=== PATIENT | male | born 1955 | race Caucasian/White ===

== ENCOUNTER 2016-10-09 07:55 | Day surgery (SDC) ==
[2016-10-09] MEDS ORDERED: DIPRIVAN 20 ML VIAL IVP ONE (11:00)
[2016-10-09 12:39] VITALS: BP 129/79; TEMP 98.3
[2016-10-09 13:21] LABS: BASOPHILS % (AUTO) 0.6 % (0.0-3.0); EOSINOPHILS # (AUTO) 0.3 K/ul (0.0-0.7); EOSINOPHILS % (AUTO) 4.7 % (0.0-7.0); HEMATOCRIT 36.8 % (42.0-52.0); HEMOGLOBIN 12.3 g/dl (14.0-18.0); IMMATURE GRANULOCYTE % (AUTO) 0.1 % (0.0-5.0); LYMPHOCYTES # (AUTO) 0.8 K/uL (0.60-3.4); LYMPHOCYTES % (AUTO) 11.5 (10.0-50.0); MEAN CORPUSCULAR HEMOGLOBIN 33.6 pg (27.0-31.0); MEAN CORPUSCULAR HGB CONC 33.4 (31.8-35.4); MEAN CORPUSCULAR VOLUME 100.5 fl (80.0-94.0); MONOCYTES # (AUTO) 0.5 K/uL (0.4-2.0); MONOCYTES % (AUTO) 7.3 (0-10); NEUTROPHILS # (AUTO) 5.2 K/ul (2.0-6.9); NEUTROPHILS % (AUTO) 75.8; PLATELET COUNT 183 10^3/uL (140-440); RED BLOOD COUNT 3.66 10^6/ul (4.70-6.10); WHITE BLOOD COUNT 6.86 K/ul (4.2-10.2)
[2016-10-09 13:24] LABS: ALBUMIN 3.7 g/dL (3.4-5.0); ALBUMIN/GLOBULIN RATIO 1.19; ANION GAP 11.9; BILIRUBIN,TOTAL 0.72 mg/dL (0.00-1.20); BUN/CREATININE RATIO 18.08; CALCIUM 9.3 mg/dL (8.2-10.2); CREATININE 0.94 mg/dL (0.60-1.10); POTASSIUM 3.9 mmol/L (3.5-5.1); TOTAL PROTEIN 6.8 g/dL (5.8-8.1)
--- NOTE | 2016-10-10 10:06 | OP ---
INDICATIONS FOR PROCEDURE: 60-year-old gentleman with longstanding Crohn's presents for surveillance examination. He states he is now taking his prescribed 150 mg of Imuran daily. He was not taking it properly when I saw him in the office in August. He has known active Crohn's involving the terminal ileum proximal to his anastomosis. Last year this inflammation was mostly in the distal 5 cm but extended up to 10 cm. He is asymptomatic. MEDICATIONS: SEE ANESTHESIA NOTES. PROCEDURE: COLONOSCOPY, BIOPSY. REPORT: The risks, benefits, alternatives and limitations were discussed in detail with the patient. Informed consent was obtained. After adequate sedation was achieved, a digital rectal exam revealed good tone, no masses. The colonoscope was introduced into the rectum and advanced under direct visual guidance to the ileocolonic anastomosis. I was able to intubate the ileum and examine distally 12 cm. There were still linear ulcerations and active inflammation in distal 5 cm but proximal to that there was no active inflammation and this was a mild improvement from one year ago. I obtained biopsies from the ileum for histological review. I then slowly withdrew the scope in a circumferential manner examining the mucosa quite carefully. I looked on the proximal and distal side of folds and flexures as best as possible. I obtained biopsies from the proximal transverse colon not too far distant from the anastomosis. In the sigmoid there were multiple scattered diverticula. There was an area of hemosiderin staining of the mucosa. This appeared to either be overlying a lipoma or an inverted diverticulum. It did not appear to be an adenomatous polyp. I therefore elected to biopsy this for histological review. Withdrawing the scope further revealed no other abnormalities other than small hemorrhoids on retroflex view of the anal canal. I obtained random biopsies from the rectum for histological review as well. The prep was adequate. The withdrawal time was 12 minutes and 0 seconds. The patient tolerated the procedure well with stable vital signs and pulse oximetry throughout. IMPRESSION: 1. Mild improvement in his Crohn's activity with now involvement of the distal 5 cm of the ileum. 2. Diverticulosis. 3. Hemosideran staining of either inverted diverticulum or probable lipoma in the sigmoid at 34 cm. 4. Small internal hemorrhoids. RECOMMENDATIONS: 1. Regarding the lesion in the sigmoid at 34 cm will await pathologist's results. If there is evidence of adenomatous tissue, which did not appear to be grossly then I would suggest repeat colonoscopy possibly this summer for polypectomy. 2. Await biopsy results randomly for surveillance. 3. If path is all negative then repeat colonoscopy examination again in one year. 4. Will go ahead and check his [facility] labs for TPMT metabolite levels to see if he is at a good level now he is on Imuran 150 mg daily for the last month. 5. Will also check CBC, celiac protein and CMP. 6. Office visit in 2 months. CC: DR. OSMANY CHAVEZ
== END 2016-10-09 13:25 | disposition home or self-care (01) ==
LOC: SURG 07:55
PROVIDERS: ATTEND Internal Medicine Gastroenterology
DX: K50.00 Crohn's disease of small intestine without complications (principal); D13.39 Benign neoplasm of other parts of small intestine; D12.3 Benign neoplasm of transverse colon; D12.5 Benign neoplasm of sigmoid colon; D12.7 Benign neoplasm of rectosigmoid junction; K57.30 Diverticulosis of large intestine without perforation or abscess without bleeding; K63.89 Other specified diseases of intestine; K64.8 Other hemorrhoids; E11.9 Type 2 diabetes mellitus without complications
CPT/HCPCS: 36415; 80053; 82962; 85025; 86140

== ENCOUNTER 2016-11-01 09:05 | Outpatient (CLI) ==
--- NOTE | 2016-11-01 10:20 | CT ---
EXAM: CT chest without contrast HISTORY: Hypertension with history of smoking and recent diagnosis of asthma COMPARISON: Chest x-ray 08/04/2014 and 02/11/2014 TECHNIQUE: Serial axial images of the chest were obtained from the lung apices to the upper abdomen without contrast. These were viewed in multiple planes. FINDINGS: The thyroid is normal. The visualized vessels are unremarkable without aneurysm or steno sis. The heart is normal in size without pericardial effusion. There are nonpathologically enlarge d lymph nodes with a precarinal lymph node measuring 0.8 centimeters in diameter. There is no hilar or axillary lymph nodes present. There is no pneumothorax or pleural effusion. There is scattered small airways thickening throughou t both lungs. There is no acute consolidation, nodule or mass. The airways are otherwise patent wi th no plugging or obstruction. There is no abnormal ground-glass. The soft tissues in the upper abdomen are unremarkable with surgical changes to the bowel in the mid abdomen. The osseous structures demonstrate scattered degenerative disease. IMPRESSION: 1. Small airway thickening throughout the lungs may represent reactive changes, chronic inflammatio n versus acute small airways inflammation/infection. 2. No acute consolidation, nodule or abnormality.
--- NOTE | 2016-11-01 10:48 | US ---
EXAM: ULTRASOUND RETROPERITONEAL LIMITED ABDOMINAL AORTA. HISTORY: Abdominal aortic aneurysm screening. Hypertension COMPARISON: None available TECHNIQUE: Wheeler scale and color doppler images. FINDINGS: Abdominal aortic measurements in centimeters as follows: Proximal, not seen due to bowel gas Mid, 2 x 1.5 Distal, 2.3 x 1.8 Color flow seen through the aorta. Right iliac artery measures 1.2 x 0.9 cm in diameter. Left iliac artery measures 1.1 x 0.9 cm in di ameter. IMPRESSION: No sonographic evidence for abdominal aortic aneurysm.
== END 2016-11-01 09:06 | disposition home or self-care (01) ==
LOC: RAD 09:05
PROVIDERS: ATTEND Internal Medicine
DX: I10 Essential (primary) hypertension (principal); F17.210 Nicotine dependence, cigarettes, uncomplicated
CPT/HCPCS: 76706; 76775

== ENCOUNTER 2017-03-16 21:47 | Emergency (ER) ==
[2017-03-16 21:57] VITALS: BP 133/76; TEMP 99.6; BMI 23.7
[2017-03-16] MEDS ORDERED: SOLU-MEDROL 125 MG IVP STA (22:03)
[2017-03-16] MEDS ORDERED: XOPENEX 1.25 MG NEB STA (22:03)
[2017-03-16] MEDS ORDERED: DUONEB NEB STA (22:03)
--- NOTE | 2017-03-16 23:02 | ED.PDOC ---
General ED Provider: Dr. TRES BAL-ER Chief Complaint: Shortness of Air Stated Complaint: im wheezing Time Seen by Physician: 21:50 Mode of Arrival: Walk-In Information Source: Patient Exam Limitations: No limitations Primary Care Provider: BILLY MEYERS Nursing and Triage Documentation Reviewed and Agree: Yes Respiratory Complaint Exam - Asthma Complaint/Exam Onset/Duration: 24hrs Symptoms Are: Still present Timing: Constant Initial Severity: Mild Current Severity: Mild Character: Reports: Wheezing, Non-productive cough Aggravating: Reports: None Alleviating: Reports: None Associated Signs and Symptoms: Reports: SOA, Labored breathing. Denies: Fever, Chest pain, Edema, Calf pain, URI, Sinus infection, Rapid breathing Related History: Reports: Similar episode Related Surgical History: Reports: None Status Asthmaticus Risk Factors: Reports: None Current Asthma Medication Usage: Yes Recent Antibiotics: No Respiratory Distress: None Accessory Muscle Use: No Diminished Breath Sounds: No Prolonged Expiratory Phase: Yes Unable to Speak Full Sentences: No Fatigue Present: No Differential Diagnoses: Acute Asthma Review of Systems - Review Of Systems Constitutional: Reports: No symptoms Eyes: Reports: No symptoms Ears, Nose, Mouth, Throat: Reports: No symptoms Respiratory: Reports: Cough, Wheezing Cardiac: Reports: No symptoms GI: Reports: No symptoms : Reports: No symptoms Musculoskeletal: Reports: No symptoms Skin: Reports: No symptoms Neurological: Reports: No symptoms Endocrine: Reports: No symptoms Hematologic/Lymphatic: Reports: No symptoms All Other Systems: Reviewed and Negative Past Medical History - Past Medical History Previously Healthy: Yes Endocrine: Reports: None Cardiovascular: Reports: None Respiratory: Reports: Asthma Hematological: Reports: None Gastrointestinal: Reports: None Genitourinary: Reports: None Neuro/Psych: Reports: None Musculoskeletal: Reports: None Cancer: Reports: None - Surgical History General Surgical History: Reports: Unknown - Family History Family History: Reports: Unknown - Social History Smoking Status: Current every day smoker Hx Substance Use: No Alcohol Screening: Occasionally Lives: With family - Immunizations Tetanus Shot up to Date: No (unsure) Physical Exam - Physical Exam Appearance: Well-appearing Eyes: MOISES, EOMI, Conjunctiva clear ENT: Ears normal, Nose normal, Oropharynx normal Neck: Supple Respiratory: Airway patent, Breath sounds equal, Wheezes Cardiovascular: Bradycardia GI/: Soft, Nontender, No masses, Bowel sounds normal, No Organomegaly Musculoskeletal: Normal strength, ROM intact, No edema, No calf tenderness Skin: Warm Neurological: Sensation intact Psychiatric: Affect appropriate, Mood appropriate Interpretation - Radiology Interpretation Radiology Interpretation By: ED Physician Radiology Results: Negative Exam Interpreted: CXR Re-Evaluation - Re-Evaluation Time of Re-Evaluation: 23:02 Status: Improved (oxygen 91 --"i feel better than i have in years") Vital Signs Stable: Yes Pain Level: 1 Appearance: NAD Lungs: Clear Skin: Warm and Dry Neuro: Alert and Oriented X3 CV: RRR Critical Care Note - Critical Care Note Total Time (mins): 0 Course - Course Orders, Labs, Meds: Orders Category Date Time Status NEBULIZER TREATMENT Stat CARDIO 03/16/17 22:03 Completed IV [ED IV/MEDIPORT/POWERPORT] .ONCE EMERGENCY 03/16/17 22:03 Active 0.9 % Sodium Chloride [Saline Flush] MEDS 03/16/17 22:03 Ordered 1 syr IVF PRN PRN Ipratropium/Albuterol Neb [Duoneb] MEDS 03/16/17 22:03 Discontinued 1 vial NEB ONCE STA Levalbuterol HCl [Xopenex 1.25 mg] MEDS 03/16/17 22:03 Discontinued 1 vial NEB ONCE STA Methylprednisolone Sod Succ/Pf [Solu-Medrol 125 mg] MEDS 03/16/17 22:03 Discontinued 125 mg IVP ONCE STA CXR [CHEST, 2 VIEWS PA & LAT] Stat RADS 03/16/17 22:04 Taken Medications Generic Name Dose Route Start Last Admin Trade Name Freq PRN Reason Stop Dose Admin Sodium Chloride 1 syr 03/16/17 22:03 Saline Flush IVF PRN PRN To flush IV Discontinued Medications Generic Name Dose Route Start Last Admin Trade Name Freq PRN Reason Stop Dose Admin Albuterol/Ipratropium 1 vial 03/16/17 22:03 03/16/17 22:40 Duoneb NEB 03/16/17 22:04 1 vial ONCE STA Administration Levalbuterol HCl 1 vial 03/16/17 22:03 03/16/17 22:49 Xopenex 1.25 Mg NEB 03/16/17 22:04 1 vial ONCE STA Administration Methylprednisolone Sodium Succinate 125 mg 03/16/17 22:03 03/16/17 22:44 Solu-Medrol 125 Mg IVP 03/16/17 22:04 125 mg ONCE STA Administration Vital Signs: Temp Pulse Resp BP Pulse Ox 03/16/17 21:49 99.6 F 75 24 133/76 89 L Departure - Departure Time of Disposition: 23:03 Disposition: HOME SELF-CARE Discharge Problem: Asthma Qualifiers: Asthma severity: mild intermittent Asthma complication type: with acute exacerbation Qualifier Code: (J45.21) Mild intermittent asthma with (acute) exacerbation Instructions: Asthma (ED) Condition: Good Pt referred to PMD for follow-up: Yes Additional Instructions: flovent inhaler 44mcg 2 puffs bid (rinse mouth use )--prednisone 30mg x 2 days then 20mg x 3 days then 10mg x 3 days--use inhaler qid --f/u with dr meyers Allergies/Adverse Reactions: Allergies codeine Adverse Reaction (Verified 03/16/17 21:58) Sulfa (Sulfonamide Antibiotics) Adverse Reaction (Verified 03/16/17 21:58) Home Medications: Ambulatory Orders Albuterol Sulfate [Albuterol Sulfate Hfa] 7 gm IH PRN 07/13/14 Amlodipine Besylate [Norvasc] 5 mg PO DAILY 07/13/14 Aspirin [Aspirin EC] 81 mg PO DAILYWM 07/13/14 Atorvastatin Calcium [Lipitor] 20 mg PO DAILY 07/13/14 Clopidogrel Bisulfate [Clopidogrel] 75 mg PO DAILY 07/13/14 Fenofibrate,Micronized [Fenofibrate] 200 mg PO DAILY 07/13/14 Ferrous Sulfate 325 mg PO DAILY 07/13/14 Glimepiride [Amaryl] 2 mg PO DAILY 07/13/14 Mesalamine [Lialda] 2.4 gm PO BID 07/13/14 Metformin HCl [Glucophage] 1,000 mg PO BID 07/13/14 Metoprolol Succinate [Toprol Xl] 50 mg PO DAILY 07/13/14 Omeprazole [Prilosec] 20 mg PO QDAC 07/13/14 Paroxetine HCl [Paxil] 30 mg PO DAILY 07/13/14 Potassium Chloride [K-Dur] 20 meq PO DAILY 07/13/14 Propylthiouracil 50 mg PO DAILY 07/13/14 Sitagliptin Phosphate [Januvia] 100 mg PO DAILY 07/13/14 Valsartan/Hydrochlorothiazide [Valsartan-Hctz 160-25 mg Tab] 0.5 tab PO DAILY Azathioprine [Imuran] 50 mg PO DAILY 07/26/15 Folic Acid 1 mg PO DAILY 07/26/15
--- NOTE | 2017-03-17 02:49 | DI ---
EXAM: Chest, two views, 03/16/2017 HISTORY: Cough COMPARISON: 08/04/2014 FINDINGS / IMPRESSION: Cardiomediastinal contours appear within normal limits. There is no pulmona ry consolidation, effusion or pneumothorax No acute cardiopulmonary process.
== END 2017-03-16 23:26 | disposition home or self-care (01) ==
LOC: ED 21:47
DX: J45.21 Mild intermittent asthma with (acute) exacerbation (principal); Z79.899 Other long term (current) drug therapy; F17.210 Nicotine dependence, cigarettes, uncomplicated
CPT/HCPCS: 94640; 96374; 96375; 99284

== ENCOUNTER 2017-05-31 16:40 | Emergency (ER) ==
[2017-05-31 16:46] VITALS: BP 132/72; TEMP 99.3; BMI 22.6
[2017-05-31] MEDS ORDERED: DUONEB NEB ONE (16:55)
--- NOTE | 2017-05-31 17:11 | ED.PDOC ---
General ED Provider: Dr. TESS MAO Chief Complaint: Shortness of Air Stated Complaint: Asthma flared up beginning this AM. Only new trigger is cold symptoms began yesterday (clear rhinorrhea and dry cough). No other sx. Time Seen by Physician: 17:05 Mode of Arrival: Walk-In Information Source: Patient Exam Limitations: No limitations Primary Care Provider: BILLY CERON Nursing and Triage Documentation Reviewed and Agree: Yes Respiratory Complaint Exam - Asthma Complaint/Exam Onset/Duration: this AM Symptoms Are: Still present Timing: Constant Initial Severity: Moderate Current Severity: Severe Character: Reports: Wheezing, Non-productive cough Aggravating: Reports: None Alleviating: Reports: None Related History: Reports: Similar episode (asthma flares in the past) Related Surgical History: Reports: None Status Asthmaticus Risk Factors: Reports: None Current Asthma Medication Usage: Yes Recent Antibiotics: No Respiratory Distress: Moderate Accessory Muscle Use: Yes Retractions: Not Present Diminished Breath Sounds: No Prolonged Expiratory Phase: No Unable to Speak Full Sentences: No Fatigue Present: No Differential Diagnoses: Acute Asthma (bronchitis ) Patient Advised to Stop Smoking: No (quit smoking in February 2017) Review of Systems - Review Of Systems Constitutional: Reports: No symptoms Eyes: Reports: No symptoms Respiratory: Reports: Cough (cold sx and [employer] cough since yesterday morning), Short of air, Wheezing Cardiac: Reports: No symptoms GI: Reports: No symptoms : Reports: No symptoms Musculoskeletal: Reports: No symptoms Skin: Reports: No symptoms Neurological: Reports: No symptoms All Other Systems: Reviewed and Negative Past Medical History - Past Medical History Previously Healthy: Yes Endocrine: Reports: None Cardiovascular: Reports: None Respiratory: Reports: Asthma Hematological: Reports: None Gastrointestinal: Reports: None Genitourinary: Reports: None Neuro/Psych: Reports: None Musculoskeletal: Reports: None Cancer: Reports: None - Surgical History General Surgical History: Reports: Unknown - Family History Family History: Reports: Unknown - Social History Smoking Status: Current every day smoker, Former smoker (quit smoking in February 2017) Hx Substance Use: No Alcohol Screening: Occasionally Lives: Alone - Immunizations Tetanus Shot up to Date: No Influenza Vaccine within 12 Months: No Pneumococcal Vaccine up to Date: No Physical Exam - Physical Exam Appearance: Well-appearing, No pain distress, Well-nourished Ill-appearing: None Pain Distress: None ENT: Rhinorrhea (TMS mata and dull) Respiratory: Airway patent, Wheezes (inspiratory and exp wheezes in AF) Cardiovascular: RRR, Pulses normal, No rub, No murmur GI/: Soft Musculoskeletal: Normal strength, ROM intact, No edema, No calf tenderness Skin: Warm, Dry, Normal color Neurological: Sensation intact, Motor intact, Reflexes intact, Cranial nerves intact, Alert, Oriented Psychiatric: Affect appropriate, Mood appropriate Re-Evaluation - Re-Evaluation Time of Re-Evaluation: 17:20 (s/p albuterol neb tx) Status: Improved (Patient states feels much better) Vital Signs Stable: Yes Pain Level: 0 Appearance: NAD Lungs: Other (faint exp wheezes only) Skin: Warm and Dry Neuro: Alert and Oriented X3 CV: RRR Critical Care Note - Critical Care Note Total Time (mins): 0 Course - Course Orders, Labs, Meds: Orders Category Date Time Status Ipratropium/Albuterol Neb [Duoneb] MEDS 05/31/17 16:55 Discontinued 1 vial NEB .STK-MED ONE Vital Signs: Temp Pulse Resp BP Pulse Ox 05/31/17 16:41 99.3 F 108 H 22 132/72 92 L Departure - Departure Time of Disposition: 17:27 Disposition: HOME SELF-CARE Discharge Problem: Asthmatic bronchitis Instructions: Asthma (ED) Condition: Good Pt referred to PMD for follow-up: No (see PCP if no better in 3 days) Allergies/Adverse Reactions: Allergies codeine Adverse Reaction (Verified 05/31/17 16:48) Sulfa (Sulfonamide Antibiotics) Adverse Reaction (Verified 05/31/17 16:48) Home Medications: Ambulatory Orders Albuterol Sulfate [Albuterol Sulfate Hfa] 7 gm IH PRN 07/13/14 Amlodipine Besylate [Norvasc] 5 mg PO DAILY 07/13/14 Aspirin [Aspirin EC] 81 mg PO DAILYWM 07/13/14 Atorvastatin Calcium [Lipitor] 20 mg PO DAILY 07/13/14 Clopidogrel Bisulfate [Clopidogrel] 75 mg PO DAILY 07/13/14 Fenofibrate,Micronized [Fenofibrate] 200 mg PO DAILY 07/13/14 Ferrous Sulfate 325 mg PO DAILY 07/13/14 Glimepiride [Amaryl] 2 mg PO DAILY 07/13/14 Mesalamine [Lialda] 2.4 gm PO BID 07/13/14 Metformin HCl [Glucophage] 1,000 mg PO BID 07/13/14 Metoprolol Succinate [Toprol Xl] 50 mg PO DAILY 07/13/14 Omeprazole [Prilosec] 20 mg PO QDAC 07/13/14 Paroxetine HCl [Paxil] 30 mg PO DAILY 07/13/14 Potassium Chloride [K-Dur] 20 meq PO DAILY 07/13/14 Propylthiouracil 50 mg PO DAILY 07/13/14 Sitagliptin Phosphate [Januvia] 100 mg PO DAILY 07/13/14 Valsartan/Hydrochlorothiazide [Valsartan-Hctz 160-25 mg Tab] 0.5 tab PO DAILY Azathioprine [Imuran] 50 mg PO DAILY 07/26/15 Folic Acid 1 mg PO DAILY 07/26/15 Albuterol Sulfate [Ventolin Hfa] 2 puff IH BID 05/31/17 Azithromycin [Zithromax] 500 mg PO DAILY #5 tablet 05/31/17
[2017-05-31] MEDS ORDERED: SOLU-MEDROL 125 MG IVP STA (17:23)
[2017-05-31] MEDS ORDERED: ALBUTEROL 0.083% NEB NEB STA (17:24)
[2017-05-31] MEDS ORDERED: SOLU-MEDROL 125 MG IM STA (17:36)
[2017-05-31] MEDS ORDERED: DUONEB NEB STA (18:09)
== END 2017-05-31 18:10 | disposition home or self-care (01) ==
LOC: ED 16:40
DX: J45.909 Unspecified asthma, uncomplicated (principal)
CPT/HCPCS: 94640; 96372; 99282

== ENCOUNTER 2017-10-01 07:28 | Day surgery (SDC) ==
[2017-10-01] MEDS ORDERED: DIPRIVAN 20 ML VIAL IVP ONE (09:30)
[2017-10-01] MEDS ORDERED: LIDOCAINE HCL 2% LUER-JET ONE (09:30)
[2017-10-01 11:07] VITALS: BP 148/74; TEMP 97.3
--- NOTE | 2017-10-02 11:45 | OP ---
INDICATIONS FOR PROCEDURE: 61-year-old gentleman with a history of Crohn's presents for colonoscopy exam. Last year he had mild Crohn's in the distal 5 cm of his terminal ileum and his Imuran was increased from 150 mg daily to 200 mg daily. He presents now for disease assessment. He is asymptomatic. MEDICATIONS: SEE ANESTHESIA NOTES. PROCEDURE: COLONOSCOPY, BIOPSY. REPORT: The risks, benefits, alternatives and limitations were discussed in detail with the patient. Informed consent was obtained. After adequate sedation was achieved, a digital rectal exam revealed good tone, no masses. The colonoscope was introduced into the rectum and advanced under direct visual guidance to the ileocolic anastomosis. This is what appeared to an end to side anastomosis. I was able to intubate the terminal ileum and examine a distance of 20 cm of this. Only the distal 5 cm was there inflammation manifested by small ulcerations and erythema. This appeared relatively unchanged from one year previous. Biopsies were obtained from this area for histologic review. I then slowly withdrew the scope in a circumferential manner examining the mucosa quite carefully. I looked on the proximal and distal sides of the folds and flexures as best as possible throughout the colon. There was diverticulosis scattered throughout the sigmoid. At roughly 34 cm there was a small submucosal lesion consistent with lipoma unchanged from one year prior. On retroflex view of the anal canal there were small internal hemorrhoids. The prep was good. The withdrawal time was 8 minutes and 15 seconds. The patient tolerated the procedure well with stable vital signs and pulse oximetry throughout. IMPRESSION: 1. MILDLY ACTIVE CROHN'S IN THE DISTAL 5 CM OF THE TERMINAL ILEUM UNCHANGED FROM ONE YEAR AGO. 2. DIVERTICULOSIS. 3. SMALL LIPOMA IN THE SIGMOID. 4. SMALL INTERNAL HEMORRHOIDS. RECOMMENDATIONS: 1. I will check with him to make certain that he is taking 200 mg Imuran daily as prescribed. 2. Await pathology results. 3. Will have him followup in the office to discuss additional treatment options. In the past he has been reluctant to do so since he has been asymptomatic. 4. Repeat colonoscopy examination again in 3 years, tentatively and as needed. CC: DR. OSMANY CHAVEZ
== END 2017-10-01 10:33 | disposition home or self-care (01) ==
LOC: SURG 07:28
PROVIDERS: ATTEND Internal Medicine Gastroenterology
DX: K50.00 Crohn's disease of small intestine without complications (principal); D13.39 Benign neoplasm of other parts of small intestine; K57.30 Diverticulosis of large intestine without perforation or abscess without bleeding; D17.79 Benign lipomatous neoplasm of other sites; K64.8 Other hemorrhoids; Z98.0 Intestinal bypass and anastomosis status

== ENCOUNTER 2018-10-07 06:32 | Day surgery (SDC) ==
[2018-10-07 07:10] VITALS: TEMP 98
[2018-10-07] MEDS ORDERED: DIPRIVAN 20 ML VIAL IVP ONE (08:07)
--- NOTE | 2018-10-08 10:31 | OP ---
INDICATIONS FOR PROCEDURE: 62 year old gentleman presents for colonoscopy evaluation. He has a history of Crohn's disease. He is asymptomatic he tell me. Last year we increased his Imuran to 250mg from 200mg but in June we had to decrease back 200mg when he WBC dropped. MEDICATIONS: SEE ANESTHESIA NOTES. PROCEDURE: COLONOSCOPY. BIOPSY. SNARE POLYPECTOMY. REPORT: The risks, benefits, alternatives and limitations were discussed in detail with the patient. Informed consent was obtained. After adequate sedation was achieved, a digital rectal exam revealed good tone, no masses. The colonoscope was introduced into the rectum and advanced under direct visual guidance to the ileocolonic anastomosis. I was able to advance the scope into the terminal ileum for 18 cm. I then slowly withdrew. In the distal 5cm of the terminal ileum there was small scattered ulceration consistent with mild active Crohn's. Biopsies were obtained for histological review. This mild was disease activity. The anastomosis appear unremarkable. I then slowly withdrew the scope in circumferential manner through colon. I looked on the proximal and distal sides of folds and flexures as best as possible. The prep was adequate. In the Transverse colon there was a diminutive 4mm polyp that I destroyed using a snare. There was a lipoma in the descending area. On retroflex view of the anal canal there was non-engorged internal hemorrhoids. The prep was adequate as above. The withdraw time was 9 minutes and 20 seconds. The patient tolerated the procedure well with stable vital signs and pulse oximetry throughout. IMPRESSION: 1. Mild smoldering Crohn's in the distal 5cm of the terminal ileum 2. Small polyp destroyed in the colon 3. Small lipoma 4. Small non-engorged hemorrhoid, internally RECOMMENDATIONS: 1. He is asymptomatic, we are going to continue to observe his Crohn's 2. When I see him in the office for his routine office visit we will discuss once again the option of switching to a biological from Imuran. versus continuing with therapy as is. 3. Plan repeat colonoscopy again one year. CC: Dr. Norman CHAVEZ
[2018-10-08 15:11] VITALS: BP 122/65
== END 2018-10-08 09:30 | disposition home or self-care (01) ==
LOC: SURG 06:32
PROVIDERS: ATTEND Internal Medicine Gastroenterology
DX: K50.00 Crohn's disease of small intestine without complications (principal); D17.9 Benign lipomatous neoplasm, unspecified; K63.5 Polyp of colon; K64.8 Other hemorrhoids

== ENCOUNTER 2018-11-07 06:49 | Outpatient (CLI) ==
--- NOTE | 2018-11-10 10:33 | ECHO2D ---
Date of Exam: 11/07/18 Ordering Physician: DR. BILLY CERON Room #: OP Reason for Echo: SOB, CARDIOMYOPATHY M-Mode Normal Adult Results LV Dimensions Normal Adult Results AoV Opening excursions >1.6 >1.6 LVEDD-base- 3.5-5.8 5.9 Ao root dimensions 2.0-3.7 3.6 LVESD-base- 3.1-4.6 L. Atrium dimensions 1.9-3.8 4.2 Post. Wall thickness 0.8-1.1 1.2 IV septum (thickness) 0.7-1.2 1.1 Post. Wall excursion 0.72-1.3 NORMAL Septal motion ABNORMAL Systolic motion R. Ventricular cavity 1.5-2.0 4.0 LVEF 60% 40 TO 45 % Paradoxical septal wall motion NORMAL 2-D : ENLARGED LEFT ATRIAL AND LEFT VENTRICLE CAVITIES (BORDERLINE); NORMAL VALVES, ENLARGED RIGHT VENTRICLE CAVITY, ABNORMAL SEPTAL MOTION--NO EFFUSION, NO THROMBUS M-MODE: MV: NORMAL AV: NORMAL TV: NORMAL PV: CHAMBER SIZE: ENLARGED LEFT ATRIAL, LEFT VENTRICLE AND RIGHT VENTRICLE CAVITIES WALL MOTION: ABNORMAL SEPTAL WALL MOTION/ HYPOKINETIC LEFT VENTRICLE PERICARDIUM: NORMAL INTERPRETATION: 1. BORDERLINE LEFT VENTRICULAR HYPERTROPHY 2. ENLARGED RIGHT VENTRICLE, LEFT ATRIAL AND LEFT VENTRICLE CAVITIES 3. HYPOKINETIC LEFT VENTRICLE, ABNORMAL SEPTAL WALL FROM BUNDLE BRANCH BLOCK 4. LEFT VENTRICULAR EJECTION FRACTION-- 40 TO 45 % MTDD
== END 2018-11-07 06:50 | disposition home or self-care (01) ==
LOC: CAR 06:49
PROVIDERS: ATTEND Internal Medicine
DX: R06.02 Shortness of breath (principal); I42.9 Cardiomyopathy, unspecified

== ENCOUNTER 2024-11-07 12:14 | Inpatient (IN) ==
--- NOTE | 2024-11-07 12:39 | ED.PDOC ---
General ED Provider: Dr. ALEIDA LAWRENCE MD Chief Complaint: Respiratory Complaint Stated Complaint: Patient is a 69-year-old male with past medical history of hypertension, type 2 diabetes, CKD, myelodysplasia, hypothyroidism, COPD, GERD, dilated cardiomyopathy, megaloblastic anemia who presents with complaint of shortness of breath, cough and fevers. The patient states that he has been having symptoms since Saturday. The cough is productive of yellow/green phlegm. He had fevers Saturday and Saturday but since the fevers have resolved. Patient also has some runny nose. Denies any headache, body aches, dizziness, sore throat, chest pain, nausea, vomiting, abdominal pain or urinary symptoms. Patient denies any exposure to sick contacts. Patient does not use any home oxygen. Patient continues to smoke cigarettes. Patient states he was treated for possible pneumonia with Keflex and steroids in the middle of September, he was feeling better after the medications still Saturday when his symptoms restarted. Time Seen by Provider: 11/07/24 12:34 Mode of Arrival: Walk-In Information Source: Patient Exam Limitations: No limitations Primary Care Provider: BILLY AUSTIN MD Nursing and Triage Documentation Reviewed and Agree: Yes What is Opioid Naive?: *Opioid Naive implies the patient is not already taking opioids or not chronically receiving opioids on a daily basis. *PRN dosing is not "usually" associated with tolerance. *Patients are at higher risk of over-sedation and aspiration. What is Opioid Tolerant?: *Opioid Tolerance implies less than the expected response to an opioid. *Acquired tolerance is defined by the patient taking 60mg of oral morphine daily (or equianalgesic dose of another opioid) for 1 week or more. *Often associated with chronic pain. *May take more than usual dose to achieve desired pain control. Review of Systems Review Of Systems Constitutional: Reports Fever Eyes: Reports No symptoms Ears, Nose, Mouth, Throat: Reports No symptoms; Denies Nose discharge or Throat pain Respiratory: Reports Cough and Shortness of Breath Cardiac: Reports No symptoms GI: Reports No symptoms : Reports No symptoms Musculoskeletal: Reports No symptoms Skin: Reports No symptoms Neurological: Reports No symptoms Endocrine: Reports No symptoms Hematologic/Lymphatic: Reports No symptoms All Other Systems: Reviewed and Negative PFSH Family History FATHER Lung cancer Mother Heart disease Social History Smoking and tobacco status: Current every day smoker Tobacco: How many years used: 53 Alcohol intake: current Alcohol intake frequency: a few times a week Alcohol type: beer and hard liquor Substance use type: does not use [place]/mormon: [employer] Special ely needs: No Agree to transfusion: Yes Adopted: No Caregiver/support person: No Foster care: No Household members: none Housing: house Marital status: S SINGLE Lives independently: Yes Daycare: no daycare Number of children: 0 service: No MCC: No Current occupational status: retired History of recent travel: No Do you think of yourself as: straight/heterosexual Current gender identity: male Seatbelt use: always Drives intoxicated or rides with intoxicated light truck driver: No Water heater temperature set < 120 degrees: Yes Working smoke detector in home: Yes Fire extinguisher in home: Yes Carbon monoxide detector in home: Yes Surgical History History of right hip replacement Z96.641 - Presence of right artificial hip joint (ICD-10) History of ear surgery bilateral canal stenosis - hernandez Z98.890 - Other specified postprocedural states (ICD-10) 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 Dia 10/23/20 Exploratory Lap Z90.49 - Acquired absence of other specified parts of digestive tract (ICD- 10) Physical Exam Physical Exam Appearance: Reports Ill-appearing, No pain distress and Well-nourished Ill-appearing: Moderate Eyes: Reports MOISES, EOMI and Conjunctiva clear ENT: Reports Ears normal, Nose normal and Oropharynx normal Neck: Supple Respiratory: Reports Breath sounds diminished, Wheezes and Other (Tachypnea, using accessory muscles of respiration) Cardiovascular: Reports Pulses normal, No murmur and Tachycardia GI/: Reports Soft and Nontender Musculoskeletal: Reports Normal strength, No edema and No calf tenderness Skin: Reports Warm and Normal color Neurological: Reports Sensation intact, Motor intact, Alert and Oriented Psychiatric: Reports Affect appropriate Interpretation EKG Interpretation EKG Interpretation By: ED Physician Time of EKG #1: 12:58 Rate: Normal Rhythm: Sinus Ectopy: None ST Segment: Normal Interpretation: Normal sinus rhythm, LBBB, no STEMI. Radiology Interpretation Radiology Interpretation By: Radiologist Radiology Results: No acute changes Exam Interpreted: Portable CXR (PA AND LATERAL VIEWS OF THE CHEST HISTORY: Cough. COMPARISON: Chest x-ray 03/16/2017 FINDINGS: The cardiomediastinal silhouette is normal. Lungs are hyperinflated. There is no pneumothorax or pleural effusion. There is no consolidation, nodule or mass. The osseous structures demonstrat) Re-Evaluation Re-Evaluation Time of Re-Evaluation: 14:45 Status: Improved Vital Signs Stable: Yes Appearance: NAD Lungs: Other (Wheezing still present but improved to the initial presentation.) Skin: Warm and Dry Neuro: Alert and Oriented X3 CV: RRR Physician Notification Case Discussed Admit To: Inpatient Consult With: Allen Arcos nurse practitioner for hospitalist Critical Care Note Critical Care Note Total Critical Care Time (mins): 40 Course Course 11/07/24 13:06 11/07/24 13:06 Orders, Labs, Meds: Lab Review 11/07/24 11/07/24 12:50 13:06 WBC 3.84 L RBC 4.08 L Hgb 14.0 Hct 40.4 L MCV 99.0 H MCH 34.3 H MCHC 34.7 RDW Coeff of Emir 13.7 Plt Count 114 L Immature Gran % (Auto) 0.3 Neut % (Auto) 80.6 H Lymph % (Auto) 11.2 Angelina % (Auto) 7.6 Eos % (Auto) 0.0 Baso % (Auto) 0.3 Neut # (Auto) 3.1 Lymph # (Auto) 0.4 L Angelina # (Auto) 0.3 L Eos # (Auto) 0.0 Baso # (Auto) 0.0 Immature Gran # (Auto) 0.0 Sodium 134.0 L Potassium 3.12 L Chloride 95.9 L Carbon Dioxide 28.3 Anion Gap 12.92 BUN 16.6 Creatinine 0.82 Estimated GFR (MDRD) 93.00 BUN/Creatinine Ratio 20.24 Glucose 167.3 H Lactic Acid 1.26 Calcium 8.50 Magnesium 2.09 Total Bilirubin 1.17 AST 39.9 ALT 20.0 Alkaline Phosphatase 85.0 Troponin I 0.015 NT-Pro-B Natriuret Pep 508 H Total Protein 7.26 Albumin 3.87 Globulin 3.39 Albumin/Globulin Ratio 1.14 Influ A Molecular Assay Positive by naat H Influ B Molecular Assay Negative by naat RSV Antigen Negative by naat SARS CoV-2 RNA Rapid BEA Negative Orders Category Date Time Status ADMIT OBSERVATION [PLACE PATIENT OBSERVATION] .TO ADMISSION 11/07/24 14:39 Active MEDSURG (MONITORED BED) EKG-(ED ONLY) Stat CARDIO 11/07/24 12:39 Completed NEBULIZER TREATMENT Routine CARDIO 11/07/24 15:00 Active OXYGEN Routine CARDIO 11/07/24 14:59 Active ACTIVITY .Early Mobilization for VTE Prevention CARE 11/07/24 14:59 Active BLOOD GLUCOSE MONITORING (MED/SURG) 0630,1100,1700,2100 CARE 11/07/24 14:59 Active GIVE HS SNACK 2100 CARE 11/07/24 14:59 Active INTAKE & OUTPUT Q8HR CARE 11/07/24 14:59 Active TELEMETRY MONITORING TELE CARE 11/07/24 14:39 Active VITAL SIGNS Q4HR CARE 11/07/24 14:59 Active ADA 1800 ESTELA. DIET DIETARY 11/07/24 Dinner Ordered HS SNACK DIETARY 11/07/24 Dinner Ordered CBC W/ AUTO DIFF DAILY@0600 LAB 11/08/24 06:00 Ordered CBC W/ AUTO DIFF DAILY@0600 LAB 11/09/24 06:00 Ordered CBC W/ AUTO DIFF Stat LAB 11/07/24 13:06 Completed CMP [COMPREHENSIVE METABOLIC PANEL] Stat LAB 11/07/24 13:06 Completed COMPREHENSIVE METABOLIC PANEL DAILY@0600 LAB 11/08/24 06:00 Ordered COMPREHENSIVE METABOLIC PANEL DAILY@0600 LAB 11/09/24 06:00 Ordered COVID [SARS COV-2 RNA RAPID BEA] Stat LAB 11/07/24 12:50 Completed FLU A & B MOLECULAR [FLU A/B MOLECULAR] Stat LAB 11/07/24 12:50 Completed LACTIC ACID Stat LAB 11/07/24 13:06 Completed MAGNESIUM Stat LAB 11/07/24 13:06 Completed PROBNP ED [NT-PROBNP(ED)] Stat LAB 11/07/24 13:06 Completed RSV Stat LAB 11/07/24 12:50 Completed TROPONIN I Stat LAB 11/07/24 13:06 Completed Acetaminophen [Tylenol] Meds 11/07/24 14:59 Active 650 mg PO Q4H PRN Ceftriaxone/D5w 1 gm Premix [Rocephin 1 gm/50 ml D5w] Meds 11/07/24 15:30 Active 1 gm in 50 ml IV DAILY Doxycycline Hyclate Inj [Doxy-100] 100 mg Meds 11/07/24 21:00 Active 0.9 % Sodium Chloride [Sodium Chloride 100Ml] 100 ml IV Q12HR Ipratropium/Albuterol Neb [Duoneb] Meds 11/07/24 18:00 Active 3 ml NEB RTQ4H Ipratropium/Albuterol Neb [Duoneb] Meds 11/07/24 12:39 Discontinued 6 ml NEB ONCE STA Methylprednisolone Sod Succ/Pf [Solu-Medrol 40 mg] Meds 11/07/24 21:00 Active 40 mg IVP Q12HR Oseltamivir Phosphate Capsule [Tamiflu Capsule] Meds 11/07/24 14:21 Discontinued 75 mg PO ONCE ONE CHEST, 1V AP ONLY Stat RADS 11/07/24 12:39 Completed Medications Generic Name Dose Route Start Last Admin Trade Name Freq PRN Reason Stop Dose Admin Acetaminophen 650 mg 11/07/24 14:59 Acetaminophen 325 Mg Tablet PO Q4H PRN Mild Pain Albuterol/Ipratropium 3 ml 11/07/24 18:00 11/08/24 01:08 Ipratropium/Albuterol Vial.Neb NEB 3 ml RTQ4H PROSPER Administration Amlodipine Besylate 5 mg 11/08/24 09:00 Amlodipine Besylate 5 Mg Tablet PO DAILY [facility] Aspirin 81 mg 11/07/24 19:30 11/07/24 21:14 Aspirin 81 Mg Tablet.Dr PO 81 mg DAILY PROSPER Administration Atorvastatin Calcium 20 mg 11/08/24 17:00 Atorvastatin Calcium 20 Mg Tablet PO DAILY@1700 [facility] Azathioprine 200 mg 11/08/24 09:00 Azathioprine 50 Mg Tablet PO DAILY [facility] Clopidogrel Bisulfate 75 mg 11/07/24 19:30 11/07/24 21:12 Clopidogrel Bisulfate 75 Mg Tablet PO 75 mg DAILY PROSPER Administration Fenofibrate 160 mg 11/08/24 09:00 Fenofibrate 160 Mg Tablet PO DAILY [facility] Ferrous Sulfate 324 mg 11/08/24 09:00 Ferrous Sulfate 324 Mg Tablet. PO 2XD PROSPER Folic Acid 1 mg 11/08/24 09:00 Folic Acid 1 Mg Tablet PO DAILY PROSPER Furosemide 20 mg 11/08/24 09:00 Furosemide 20 Mg Tablet PO QAM PROSPER CEFTRIAXONE/D5W 1 GM PREMIX 1 gm in 50 mls @ 100 mls/hr 11/07/24 15:30 11/07/24 15:23 Rocephin 1 Gm/50 Ml D5w IV 11/10/24 15:29 100 mls/hr DAILY PROSPER Administration Doxycycline Hyclate 100 mg/ 100 mls @ 50 mls/hr 11/07/24 21:00 11/07/24 21:12 Sodium Chloride IV 11/10/24 20:59 50 mls/hr Q12HR PROSPER Administration Insulin Human Regular 0 unit 11/07/24 19:15 Insulin Regular, Human 100 Unit/Ml (10ml) Vial SUBCUT PRN PRN Hyperglycemia Protocol Losartan Potassium 50 mg 11/08/24 09:00 Losartan Potassium 25 Mg Tablet PO DAILY [facility] Methylprednisolone Sodium Succinate 40 mg 11/07/24 21:00 11/07/24 21:14 Methylprednisolone Sod Succ/Pf 40 Mg/Ml Vial IVP 40 mg Q12HR PROSPER Administration Metoprolol Succinate 50 mg 11/08/24 09:00 Metoprolol Succinate 50 Mg Tab.Er.24h PO DAILY [facility] Omeprazole 20 mg 11/08/24 09:00 Omeprazole 20 Mg Capsule. PO DAILY [facility] Paroxetine HCl 30 mg 11/08/24 09:00 Paroxetine Hcl 20 Mg Tablet PO DAILY [facility] Potassium Chloride 20 meq 11/08/24 09:00 Potassium Chloride 20 Meq Tab PO DAILY [facility] Propylthiouracil 50 mg 11/08/24 09:00 Propylthiouracil 50 Mg Tablet PO DAILY [facility] Sitagliptin Phosphate 50 mg 11/08/24 09:00 Sitagliptin Phosphate 50 Mg Tablet PO DAILY [facility] Discontinued Medications Generic Name Dose Route Start Last Admin Trade Name Freq PRN Reason Stop Dose Admin Albuterol/Ipratropium 6 ml 11/07/24 12:39 11/07/24 12:48 Ipratropium/Albuterol Vial.Neb NEB 11/07/24 12:40 6 ml ONCE STA Administration Oseltamivir Phosphate 75 mg 11/07/24 14:21 02/15/25 15:23 Oseltamivir Phosphate 75 Mg Capsule PO 11/07/24 14:22 75 mg ONCE ONE Administration Potassium Chloride 40 meq 11/07/24 19:38 11/07/24 21:12 Potassium Chloride 20 Meq Tab PO 11/07/24 19:39 40 meq ONCE ONE Administration Vital Signs: Temp Pulse Resp BP Pulse Ox 11/07/24 12:26 97.4 F L 102 H 20 120/69 90 L Differential diagnosis include but not limited to flu, COVID, RSV infection, pneumonia, pleural effusion, pneumothorax, PE, COPD exacerbation, asthma exacerbation, CHF exacerbation, anxiety. ER course: Patient is a 69-year-old male who presented with fever cough and shortness of breath since Saturday. Patient had pneumonia recently which was treated with Keflex and prednisone. Patient was getting better but since Saturday his symptoms restarted. On arrival patient was saturating in high 80s, he was given oxygen and started on breathing treatments which improved his symptoms. Swabs came back positive for flu. Patient requiring oxygen and continuing to be tachypneic, we will admit him. Discussed with Allen Arcos NP for Dr. Alton Austin and the patient was admitted to the hospitalist services. Discharge Plan Discharge Patient Disposition: ADMITTED INPATIENT Discharge Problem: COPD exacerbation, Influenza A, Dyspnea Did you review [place] ESTIMATOR BINDING for ALL controlled substances?: Not Applicable ED Provider: ALEIDA LAWRENCE Condition: Stable
[2024-11-07] MEDS: DUONEB NEB STA (12:48)
[2024-11-07 13:10] LABS: MOLECULAR FLU A POSITIVE BY NAAT (NEGATIVE); MOLECULAR FLU B NEGATIVE BY NAAT (NEGATIVE); RSV MOLECULAR NEGATIVE BY NAAT (NEGATIVE); SARS COV-2 RNA RAPID NAAT NEGATIVE (NEGATIVE)
[2024-11-07 13:22] LABS: BASOPHILS % (AUTO) 0.3 % (0.0-3.0); HEMATOCRIT 40.4 % (42.0-52.0); IMMATURE GRANULOCYTE % (AUTO) 0.3 % (0.0-5.0); LYMPHOCYTES # (AUTO) 0.4 K/uL (0.60-3.4); LYMPHOCYTES % (AUTO) 11.2 (10.0-50.0); MEAN CORPUSCULAR HEMOGLOBIN 34.3 pg (27.0-31.0); MEAN CORPUSCULAR HGB CONC 34.7 (31.8-35.4); MONOCYTES # (AUTO) 0.3 K/uL (0.4-2.0); MONOCYTES % (AUTO) 7.6 (0-10); NEUTROPHILS # (AUTO) 3.1 K/ul (2.0-6.9); NEUTROPHILS % (AUTO) 80.6 % (42.2-75.2); PLATELET COUNT 114 10^3/uL (140-440); RDW COEFFICIENT OF VARIATION 13.7 % (11.6-14.8); RED BLOOD COUNT 4.08 10^6/ul (4.70-6.10); WHITE BLOOD COUNT 3.84 K/ul (4.2-10.2)
[2024-11-07 13:27] LABS: ALBUMIN 3.87 g/dL (3.5-5.0); ASPARTATE AMINO TRANSFERASE 39.9 U/L (17-59); BILIRUBIN,TOTAL 1.17 mg/dL (0.2-1.3); BLOOD UREA NITROGEN 16.6 mg/dL (9-20); CALCIUM 8.5 mg/dL (8.4-10.2); CARBON DIOXIDE 28.3 mmol/L (22-30.0); CHLORIDE 95.9 mmol/L (98-107); CREATININE 0.82 mg/dL (0.60-1.10); GLUCOSE 167.3 mg/dL (74-106); MAGNESIUM 2.09 mg/dL (1.6-2.3); POTASSIUM 3.12 mmol/L (3.5-5.1); TOTAL PROTEIN 7.26 g/dL (6.3-8.2)
--- NOTE | 2024-11-07 14:51 | DI ---
EXAM: CHEST RADIOGRAPH (1 VIEW) TECHNIQUE: Frontal Chest Radiograph. HISTORY: Shortness of breath COMPARISON: None. FINDINGS: Lines, Tubes, Devices: None Lungs and Pleura: No focal consolidation. No pleural effusion. No pneumothorax. Findings suggestin g chronic obstructive pulmonary disease. Cardiac silhouette: Normal. Bones: Old left rib fracture. IMPRESSION: No acute radiographic abnormality. See above description.
[2024-11-07] MEDS ORDERED: TYLENOL PO PRN (14:59)
[2024-11-07] MEDS: ROCEPHIN 1 GM/50 ML D5W 1 GM/50 ML BAG IV SCH (15:23)
[2024-11-07] MEDS: TAMIFLU CAPSULE PO ONE (15:23)
[2024-11-07 16:10] VITALS: BMI 19.1
[2024-11-07] MEDS: DUONEB NEB SCH (17:20)
--- NOTE | 2024-11-07 19:16 | PCM ---
Date of Service Date Seen by Provider: 11/07/24 Time Seen by Provider: 14:45 Admit Day/Time Admission Date: 11/07/24 Reason for Admission Chief Complaint: ACUTE HYPOXIC RESPITORY FAILURE Hospital Provider Hospital Provider: DELPHINE CLIFTON, [facility] [place] Primary Care Physician Primary Care Physician: BILLY AUSTIN MD History of Present Illness History of Present Illness: 69 yo male with pmh of COPD, DM2, Crohn's disease, CVA, and HTN presented to the ER with shortness of breath. Patient states he started not feeling well on Saturday with fever and cough. Progressively worsening to shortness of breath. He was treated for URI in September with keflex and steroids. Today found to have flu A. Chest x-ray clear. Mild leukopenia and hypokalemia. O2 sat dropped down to 87% on RA. He was placed on 2L. Does not wear home oxygen and is still an active smoker. Admitted to Med/surg Observation Case Discussed With Case Discussed With: Patient's case was discussed with the ER Physicians, Dr. Maldonado. 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 Dia 10/23/20 Exploratory Lap Z90.49 - Acquired absence of other specified parts of digestive tract (ICD- 10) Family History FATHER Lung cancer Mother Heart disease Social History Smoking and tobacco status: Current every day smoker Tobacco: How many years used: 53 Alcohol intake: current Alcohol intake frequency: a few times a week Alcohol type: beer and hard liquor Substance use type: does not use Ely/yarsanism: BUDDHIST Special ely needs: No Agree to transfusion: Yes Adopted: No Caregiver/support person: No Foster care: No Household members: none Housing: house Marital status: S SINGLE Lives independently: Yes Daycare: no daycare Number of children: 0 service: No correction: No Current occupational status: retired History of recent travel: No Do you think of yourself as: straight/heterosexual Current gender identity: male Seatbelt use: always Drives intoxicated or rides with intoxicated team driver: No Water heater temperature set < 120 degrees: Yes Working smoke detector in home: Yes Fire extinguisher in home: Yes Carbon monoxide detector in home: Yes Allergies Allergies Allergy/AdvReac Type Severity Reaction Status Date / Time codeine AdvReac N/V Verified 11/07/24 12:30 Sulfa (Sulfonamide AdvReac Rash Verified 11/07/24 12:30 Antibiotics) Current Medications Home Medications Acetaminophen (Acetaminophen 325 Mg Tablet) 650 mg PO Q4H PRN PRN Reason: Mild Pain Albuterol/Ipratropium (Ipratropium/Albuterol Vial.Neb) 3 ml NEB RTQ4H [facility] Last Admin: 11/07/24 17:20 Dose: 3 ml Amlodipine Besylate (Amlodipine Besylate 5 Mg Tablet) 5 mg PO DAILY [facility] Aspirin (Aspirin 81 Mg Tablet.) 81 mg PO DAILY [facility] Atorvastatin Calcium (Atorvastatin Calcium 20 Mg Tablet) 20 mg PO DAILY@1700 [facility] Azathioprine (Azathioprine 50 Mg Tablet) 200 mg PO DAILY [facility] Clopidogrel Bisulfate (Clopidogrel Bisulfate 75 Mg Tablet) 75 mg PO DAILY [facility] Folic Acid (Folic Acid 1 Mg Tablet) 1 mg PO DAILY [facility] Furosemide (Furosemide 20 Mg Tablet) 20 mg PO QAM [facility] CEFTRIAXONE/D5W 1 GM PREMIX (Rocephin 1 Gm/50 Ml D5w) 1 gm in 50 mls @ 100 mls/hr IV DAILY [facility] Stop: 11/10/24 15:29 Last Admin: 11/07/24 15:23 Dose: 100 mls/hr Doxycycline Hyclate 100 mg/ (Sodium Chloride) 100 mls @ 50 mls/hr IV Q12HR [facility] Stop: 11/10/24 20:59 Insulin Human Regular (Insulin Regular, Human 100 Unit/Ml (10ml) Vial) 0 unit SUBCUT PRN PRN; Protocol PRN Reason: Hyperglycemia Losartan Potassium (Losartan Potassium 25 Mg Tablet) 50 mg PO DAILY [facility] Methylprednisolone Sodium Succinate (Methylprednisolone Sod Succ/Pf 40 Mg/Ml Vial) 40 mg IVP Q12HR [facility] Metoprolol Succinate (Metoprolol Succinate 50 Mg Tab.Er.24h) 50 mg PO DAILY [facility] Non-Formulary Medication (Ferrous Sulfate [Ferosul]) 325 mg PO 2XD [facility] Non-Formulary Medication (Fenofibrate Micronized) 200 mg PO DAILY [facility] Omeprazole (Omeprazole 20 Mg Capsule.Dr) 20 mg PO DAILY [facility] Paroxetine HCl (Paroxetine Hcl 20 Mg Tablet) 30 mg PO DAILY [facility] Potassium Chloride (Potassium Chloride 20 Meq Tab) 20 meq PO DAILY [facility] Propylthiouracil (Propylthiouracil 50 Mg Tablet) 50 mg PO DAILY [facility] Sitagliptin Phosphate (Sitagliptin Phosphate 50 Mg Tablet) 50 mg PO DAILY [facility] azathioprine 50 mg tablet (Imuran) 200 mg PO DAILY [facility]'S DISE[facility] 07/26/15 [History Confirmed 11/07/24] folic acid 1 mg tablet 1 mg PO DAILY 07/26/15 [History Confirmed 11/07/24] C.COMMODE #1 ea 06/17/23 [Rx Confirmed 11/07/24] aspirin 81 mg tablet,delayed release (Adult Low Dose Aspirin) 81 mg PO QDAY 06/25/23 [History Confirmed 11/07/24] clopidogrel 75 mg tablet See Rx Instructions .Route .COMPLEX #30 tabs 08/08/23 [Rx Confirmed 11/07/24] losartan 50 mg tablet 50 mg PO DAILY #90 tabs 07/22/24 [Rx Confirmed 11/07/24] furosemide 20 mg tablet 20 mg PO QAM #30 tabs 07/30/24 [Rx Confirmed 11/07/24] albuterol sulfate 90 mcg/actuation aerosol inhaler 2 puff inhalation Q4-6H PRN for wheezing #6.7 grams 09/02/24 [Rx Confirmed 11/07/24] metformin 1,000 mg tablet 1,000 mg PO DAILY #30 tabs 09/02/24 [Rx Confirmed 11/07/24] atorvastatin 20 mg tablet 20 mg PO DAILY #30 tabs 10/01/24 [Rx Confirmed 10/24 02/14] ferrous sulfate 325 mg (65 mg iron) tablet (FeroSul) 325 mg PO 2XD #60 tabs 10/01/24 [Rx Confirmed 11/07/24] omeprazole 20 mg capsule,delayed release 20 mg PO DAILY #30 caps 10/01/24 [Rx Confirmed 11/07/24] amlodipine 5 mg tablet 5 mg PO DAILY #30 tabs 10/05/24 [Rx Confirmed 11/07/24] fenofibrate micronized 200 mg capsule 200 mg PO DAILY #30 caps 10/05/24 [Rx Confirmed 11/07/24] metoprolol succinate 100 mg tablet,extended release 24 hr 50 mg (1/2 x 100 mg) PO DAILY #15 tabs 10/05/24 [Rx Confirmed 11/07/24] potassium chloride 20 mEq tablet,extended release(part/cryst) 20 meq PO DAILY #30 tabs 10/05/24 [Rx Confirmed 11/07/24] propylthiouracil 50 mg tablet 50 mg PO DAILY #30 tabs 10/05/24 [Rx Confirmed 11/07/24] sitagliptin phosphate 50 mg tablet (Januvia) 50 mg PO DAILY #30 tabs 10/05/24 [Rx Confirmed 11/07/24] paroxetine HCl 30 mg tablet 30 mg PO DAILY #30 tabs 10/27/24 [Rx Confirmed 11/07/24] Opioid Naive vs. Tolerant Does Patient Take Opioids?: No Is Patient Opioid Naive?: Yes What is Opioid Naive?: *Opioid Naive implies the patient is not already taking opioids or not chronically receiving opioids on a daily basis. *PRN dosing is not "usually" associated with tolerance. *Patients are at higher risk of over-sedation and aspiration. Is Patient Opioid Tolerant?: No What is Opioid Tolerant?: *Opioid Tolerance implies less than the expected response to an opioid. *Acquired tolerance is defined by the patient taking 60mg of oral morphine daily (or equianalgesic dose of another opioid) for 1 week or more. *Often associated with chronic pain. *May take more than usual dose to achieve desired pain control. Review of Systems Constitutional: Reports Fever Head: Reports Normocephalic Eyes: Reports No symptoms Ears: Reports No symptoms Nose: Reports No symptoms Mouth: Reports No symptoms Throat: Reports No symptoms Cardiovascular: Reports No symptoms Respiratory: Reports Cough and Shortness of air Gastrointestinal: Reports No symptoms Genitourinary: Reports No Symptoms Musculoskeletal: Reports No symptoms Endocrine: Reports No symptoms Hematology: Reports No symptoms Immunology: Reports No symptoms Neurological: Reports No symptoms Psychiatric: Reports No symptoms Physical examination Most Recent Vital Signs: Most Recent Vital Signs Temperature 98.5 F 11/07/24 18:00 Temperature Source Temporal Artery Scan 11/07/24 18:00 Temperature Source Infrared 11/07/24 12:26 Pulse Rate 83 11/07/24 18:00 Respiratory Rate 14 11/07/24 18:00 Blood Pressure 127/87 11/07/24 18:00 Blood Pressure Mean 100 11/07/24 18:00 Blood Pressure Left Arm 117/72 11/07/24 15:53 Blood Pressure Location Right Arm 11/07/24 18:00 Blood Pressure Position Supine 11/07/24 15:53 O2 Sat by Pulse Oximetry 93 L 11/07/24 18:00 Oxygen Delivery Method Nasal Cannula 11/07/24 18:42 Oxygen Flow Rate 2 11/07/24 18:42 Height 6 ft 5 in 11/07/24 15:53 Weight 73.3 kg 11/07/24 15:53 Telemetry Type Remote Telemetry 11/07/24 19:00 Telemetry Monitoring Continues 11/07/24 19:00 Irregular Telemetry Rate (Approximate) 80-90 BPM 11/07/24 19:00 Telemetry Heart Rate 81 11/07/24 18:[address] Interval 0.16 11/07/24 18:20 EKG QRS Interval 0.12 H 11/07/24 19:00 Telemetry Strip Reading AFIB w/ BBB 11/07/24 19:00 Appearance: Positive No Apparent Distress, Alert and Oriented x3 and Ill- Appearing Skin: Positive Warm and Good Turgor HEENT: Positive Normocephalic and PERRLA Neck: Positive Supple and Midline Trachea Chest/Lungs: Positive Symmetrical With Equal Breath Sounds and Clear to Auscultation Bilaterally (severely diminished) Heart: Positive RRR and No S4 Auscultated GI/: Positive Soft, Nontender, Bowel Sounds Normal and No Distention Musculoskeletal: Positive Not Examined Extremities: Positive Intact Peripheral Pulses, Stable Joints Without Laxity and Good ROM in All Joints Neurological: Positive Sensation Intact, Motor intact, Reflexes Intact, Alert and Oriented Labs This Visit Labs This Visit: Labs This Visit 11/07/24 11/07/24 12:50 13:06 WBC 3.84 L RBC 4.08 L Hgb 14.0 Hct 40.4 L MCV 99.0 H MCH 34.3 H MCHC 34.7 RDW Coeff of Emir 13.7 Plt Count 114 L Immature Gran % (Auto) 0.3 Neut % (Auto) 80.6 H Lymph % (Auto) 11.2 Alcorn % (Auto) 7.6 Eos % (Auto) 0.0 Baso % (Auto) 0.3 Neut # (Auto) 3.1 Lymph # (Auto) 0.4 L Alcorn # (Auto) 0.3 L Eos # (Auto) 0.0 Baso # (Auto) 0.0 Immature Gran # (Auto) 0.0 Sodium 134.0 L Potassium 3.12 L Chloride 95.9 L Carbon Dioxide 28.3 Anion Gap 12.92 BUN 16.6 Creatinine 0.82 Estimated GFR (MDRD) 93.00 BUN/Creatinine Ratio 20.24 Glucose 167.3 H Lactic Acid 1.26 Calcium 8.50 Magnesium 2.09 Total Bilirubin 1.17 AST 39.9 ALT 20.0 Alkaline Phosphatase 85.0 Troponin I 0.015 NT-Pro-B Natriuret Pep 508 H Total Protein 7.26 Albumin 3.87 Globulin 3.39 Albumin/Globulin Ratio 1.14 Influ A Molecular Assay Positive by naat H Influ B Molecular Assay Negative by naat RSV Antigen Negative by naat SARS CoV-2 RNA Rapid BEA Negative Imaging Imaging: EXAM: CHEST RADIOGRAPH (1 VIEW) TECHNIQUE: Frontal Chest Radiograph. HISTORY: Shortness of breath COMPARISON: None. FINDINGS: Lines, Tubes, Devices: None Lungs and Pleura: No focal consolidation. No pleural effusion. No pneumothorax. Findings suggesting chronic obstructive pulmonary disease. Cardiac silhouette: Normal. Bones: Old left rib fracture. IMPRESSION: No acute radiographic abnormality. Review Statement Review Statement: I have independently reviewed and interpreted the labs/EKGs/imaging that were ordered by the ER provider. I have reviewed all outside records that are available currently in our EMR including imaging/notes/labs from previous visits. Plan Plan: 1. Acute Hypoxic Respiratory Failure in the setting of COPD exacerbation and Influenza A - wean oxygen as tolerated, steroids, nebs 2. Influenza A - out of 48 hour window for tamiflu, conservative measures, isolation 3. COPD Exacerbation - rocephin, doxy, steroids, nebs 4. Hypokalemia - replace and monitor 5. HTN - chronic, continue home medications 6. DM2 - ADA diet, accuchecks qid with ssi, hold metformin DVT Prophylaxis: Plavix Time Spent: Greater than 80 minutes spent with patient, 50% of the time spent with this patient was devoted to counseling and coordination of care. Advanced Care Plannin minutes spent discussing advance care planning. Smoking Cessation: 3-10 minutes spent discussing smoking cessation. Disposition: Admit to: Med/Surg Observation Full Code Discussed Plan of Care with Dr. Jose Alfredo Austin. Medications Medication Orders: Medications Ordered Category Date Time Status Acetaminophen [Tylenol] Meds 11/07/24 14:59 Active 650 mg PO Q4H PRN Amlodipine Besylate [Norvasc] Meds 11/08/24 09:00 Ordered 5 mg PO DAILY Aspirin [Aspirin EC] Meds 11/07/24 19:30 Ordered 81 mg PO QDAY Atorvastatin Calcium [Lipitor] Meds 11/08/24 09:00 Ordered 20 mg PO DAILY Azathioprine [Imuran] Meds 11/08/24 09:00 Ordered 200 mg PO DAILY Ceftriaxone/D5w 1 gm Premix [Rocephin 1 gm/50 ml D5w] Meds 11/07/24 15:30 Active 1 gm in 50 ml IV DAILY Clopidogrel Bisulfate [Plavix] Meds 11/07/24 19:30 Ordered See Dose Instructions PO .COMPLEX Doxycycline Hyclate Inj [Doxy-100] 100 mg Meds 11/07/24 21:00 Active 0.9 % Sodium Chloride [Sodium Chloride 100Ml] 100 ml IV Q12HR Folic Acid Meds 11/08/24 09:00 Ordered 1 mg PO DAILY Furosemide [Lasix Tab] Meds 11/08/24 09:00 Ordered 20 mg PO QAM Insulin Regular, Human [Humulin R (10Ml)] Meds 11/07/24 19:15 Ordered See Protocol SUBCUT PRN PRN Ipratropium/Albuterol Neb [Duoneb] Meds 11/07/24 18:00 Active 3 ml NEB RTQ4H Losartan Potassium [Cozaar] Meds 11/08/24 09:00 Ordered 50 mg PO DAILY Methylprednisolone Sod Succ/Pf [Solu-Medrol 40 mg] Meds 11/07/24 21:00 Active 40 mg IVP Q12HR Metoprolol Succinate [Toprol Xl] Meds 11/08/24 09:00 Ordered 50 mg PO DAILY Omeprazole [Prilosec] Meds 11/08/24 09:00 Ordered 20 mg PO DAILY Paroxetine HCl [Paxil] Meds 11/08/24 09:00 Ordered 30 mg PO DAILY Potassium Chloride [K-Dur] Meds 11/08/24 09:00 Ordered 20 meq PO DAILY Propylthiouracil Meds 11/08/24 09:00 Ordered 50 mg PO DAILY Sitagliptin Phosphate [Januvia] Meds 11/08/24 09:00 Ordered 50 mg PO DAILY fenofibrate micronized Meds 11/08/24 09:00 Ordered 200 mg PO DAILY ferrous sulfate [FeroSul] Meds 11/07/24 21:00 Ordered 325 mg PO 2XD
[2024-11-07] MEDS: K-DUR PO ONE (21:12)
[2024-11-07] MEDS: PLAVIX PO SCH (21:12)
[2024-11-07] MEDS: DOXY-100 100 MG in SODIUM CHLORIDE 100ML 100 ML IV SCH (21:12)
[2024-11-07] MEDS: SOLU-MEDROL 40 MG IVP SCH (21:14)
[2024-11-07] MEDS: ASPIRIN EC PO SCH (21:14)
[2024-11-08 05:41] LABS: HEMATOCRIT 41.9 % (42.0-52.0); HEMOGLOBIN 14.3 g/dl (14.0-18.0); IMMATURE GRANULOCYTE % (AUTO) 0.4 % (0.0-5.0); LYMPHOCYTES # (AUTO) 0.2 K/uL (0.60-3.4); LYMPHOCYTES % (AUTO) 3.9 (10.0-50.0); MEAN CORPUSCULAR HEMOGLOBIN 34.1 pg (27.0-31.0); MEAN CORPUSCULAR HGB CONC 34.1 (31.8-35.4); MONOCYTES # (AUTO) 0.1 K/uL (0.4-2.0); MONOCYTES % (AUTO) 2.7 (0-10); NEUTROPHILS # (AUTO) 4.8 K/ul (2.0-6.9); PLATELET COUNT 125 10^3/uL (140-440); RDW COEFFICIENT OF VARIATION 13.8 % (11.6-14.8); RED BLOOD COUNT 4.19 10^6/ul (4.70-6.10); WHITE BLOOD COUNT 5.11 K/ul (4.2-10.2)
[2024-11-08 05:57] LABS: ALANINE AMINOTRANSFERASE 22.9 U/L (0-50); ALBUMIN 4.27 g/dL (3.5-5.0); ALKALINE PHOSPHATASE 83.3 U/L (56-119); ASPARTATE AMINO TRANSFERASE 40.3 U/L (17-59); BILIRUBIN,TOTAL 1.06 mg/dL (0.2-1.3); BLOOD UREA NITROGEN 14.4 mg/dL (9-20); CALCIUM 8.76 mg/dL (8.4-10.2); CARBON DIOXIDE 30.3 mmol/L (22-30.0); CHLORIDE 95.6 mmol/L (98-107); CREATININE 0.85 mg/dL (0.60-1.10); POTASSIUM 4.34 mmol/L (3.5-5.1); SODIUM 135.2 mmol/L (134.5-145); TOTAL PROTEIN 7.99 g/dL (6.3-8.2)
[2024-11-08] MEDS: HUMULIN R (10ML) SUBCUT PRN (06:19)
[2024-11-08] MEDS: PROPYLTHIOURACIL PO SCH (08:47)
[2024-11-08] MEDS: ASPIRIN EC PO SCH (08:47)
[2024-11-08] MEDS: JANUVIA PO SCH (08:47)
[2024-11-08] MEDS: PAXIL PO SCH (08:47)
[2024-11-08] MEDS: IMURAN PO SCH (08:47)
[2024-11-08] MEDS: K-DUR PO SCH (08:48)
[2024-11-08] MEDS: NORVASC PO SCH (08:48)
[2024-11-08] MEDS: FOLIC ACID PO SCH (08:48)
[2024-11-08] MEDS: COZAAR PO SCH (08:48)
[2024-11-08] MEDS: PRILOSEC PO SCH (08:48)
[2024-11-08] MEDS: TOPROL XL PO SCH (08:48)
[2024-11-08] MEDS: TRIGLIDE PO SCH (08:48)
[2024-11-08] MEDS: LASIX TAB PO SCH (08:49)
[2024-11-08] MEDS: FERROUS SULFATE PO SCH (08:49)
--- NOTE | 2024-11-08 12:52 | PCM.PROG ---
Date/Time Seen Date Seen by Provider: 11/08/24 Time Seen by Provider: 10:15 Provider Provider[facility] DELPHINE CLIFTON[facility] Chief Complaint Chief Complaint: ACUTE HYPOXIC RESPITORY FAILURE Subjective Subjective: States his breathing is some better today. Still requiring 2L this am Objective Appearance: Positive No Apparent Distress and Alert and Oriented x3 Chest/Lungs: Positive Symmetrical With Equal Breath Sounds and Clear to Auscultation Bilaterally (mod diminished) Heart: Positive RRR and Pulses Normal GI/: Positive Soft, Nontender, Bowel Sounds Normal and No Distention Musculoskeletal: Positive Not Examined Neurological: Positive Sensation Intact, Motor intact, Alert, Oriented and Muscle Strength 5/5 in Upper and Lower Extremities Bilaterally Vital Signs Vital Signs: Vital Signs: Last 24 Hours 11/07/24 15:53 11/07/24 15:53 11/07/24 16:00 Temperature 97.4 F L Temperature Source Temporal Artery Scan Pulse Rate 83 Respiratory Rate 14 Blood Pressure Blood Pressure Mean Blood Pressure Left Arm 117/72 Blood Pressure Location Blood Pressure Position Supine O2 Sat by Pulse Oximetry 93 L Oxygen Delivery Method Nasal Cannula Nasal Cannula Nasal Cannula Oxygen Flow Rate 2 2 Height 6 ft 5 in Weight 73.3 kg Telemetry Type Telemetry Monitoring Telemetry Heart Rate EKG MA Interval EKG QRS Interval Telemetry Strip Reading 11/07/24 16:17 11/07/24 17:17 11/07/24 17:38 Temperature Temperature Source Pulse Rate Respiratory Rate Blood Pressure Blood Pressure Mean Blood Pressure Left Arm Blood Pressure Location Blood Pressure Position O2 Sat by Pulse Oximetry 91 L Oxygen Delivery Method Nasal Cannula Nasal Cannula Nasal Cannula Oxygen Flow Rate 2 Height Weight Telemetry Type Telemetry Monitoring Telemetry Heart Rate EKG MA Interval EKG QRS Interval Telemetry Strip Reading 11/07/24 18:00 11/07/24 18:20 11/07/24 18:42 Temperature 98.5 F Temperature Source Temporal Artery Scan Pulse Rate 83 Respiratory Rate 14 Blood Pressure 127/87 Blood Pressure Mean 100 Blood Pressure Left Arm Blood Pressure Location Right Arm Blood Pressure Position O2 Sat by Pulse Oximetry 93 L Oxygen Delivery Method Nasal Cannula Nasal Cannula Oxygen Flow Rate 2 2 Height Weight Telemetry Type Remote Telemetry Telemetry Monitoring Started Telemetry Heart Rate 81 EKG MA Interval 0.16 EKG QRS Interval 0.12 H Telemetry Strip Reading SR W/ BBB & PACs 11/07/24 19:00 11/07/24 19:39 11/07/24 20:00 Temperature Temperature Source Pulse Rate Respiratory Rate Blood Pressure Blood Pressure Mean Blood Pressure Left Arm Blood Pressure Location Blood Pressure Position O2 Sat by Pulse Oximetry Oxygen Delivery Method Nasal Cannula Nasal Cannula Oxygen Flow Rate Height Weight Telemetry Type Remote Telemetry Telemetry Monitoring Continues Telemetry Heart Rate EKG MA Interval 0.17 EKG QRS Interval 0.10 Telemetry Strip Reading Sinus Rhythm 11/07/24 20:00 11/07/24 20:24 11/07/24 21:00 Temperature 99.3 F Temperature Source Temporal Artery Scan Pulse Rate 102 H Respiratory Rate 19 Blood Pressure 149/80 H Blood Pressure Mean 103 Blood Pressure Left Arm Blood Pressure Location Right Arm Blood Pressure Position Supine O2 Sat by Pulse Oximetry 92 L Oxygen Delivery Method Nasal Cannula Nasal Cannula Nasal Cannula Oxygen Flow Rate 2 2 Height Weight Telemetry Type Telemetry Monitoring Telemetry Heart Rate EKG MA Interval EKG QRS Interval Telemetry Strip Reading 11/07/24 22:00 11/07/24 23:00 11/08/24 00:00 Temperature Temperature Source Pulse Rate Respiratory Rate Blood Pressure Blood Pressure Mean Blood Pressure Left Arm Blood Pressure Location Blood Pressure Position O2 Sat by Pulse Oximetry Oxygen Delivery Method Nasal Cannula Nasal Cannula Nasal Cannula Oxygen Flow Rate Height Weight Telemetry Type Telemetry Monitoring Telemetry Heart Rate EKG MA Interval EKG QRS Interval Telemetry Strip Reading 11/08/24 01:00 11/08/24 01:00 11/08/24 02:00 Temperature Temperature Source Pulse Rate Respiratory Rate Blood Pressure Blood Pressure Mean Blood Pressure Left Arm Blood Pressure Location Blood Pressure Position O2 Sat by Pulse Oximetry Oxygen Delivery Method Nasal Cannula Nasal Cannula Oxygen Flow Rate Height Weight Telemetry Type Remote Telemetry Telemetry Monitoring Continues Telemetry Heart Rate 68 EKG MA Interval 0.27 H EKG QRS Interval 0.10 Telemetry Strip Reading SINUS RHYTHM WITH 1ST AVB 11/08/24 02:00 11/08/24 02:56 11/08/24 03:57 Temperature Temperature Source Pulse Rate 77 Respiratory Rate 19 Blood Pressure Blood Pressure Mean Blood Pressure Left Arm Blood Pressure Location Blood Pressure Position O2 Sat by Pulse Oximetry Oxygen Delivery Method Room Air Room Air Room Air Oxygen Flow Rate Height Weight Telemetry Type Telemetry Monitoring Telemetry Heart Rate EKG MA Interval EKG QRS Interval Telemetry Strip Reading 11/08/24 05:00 11/08/24 05:39 11/08/24 05:39 Temperature 97.3 F L Temperature Source Temporal Artery Scan Pulse Rate 68 Respiratory Rate 18 Blood Pressure 162/84 H Blood Pressure Mean 110 Blood Pressure Left Arm Blood Pressure Location Right Arm Blood Pressure Position Supine O2 Sat by Pulse Oximetry 92 L Oxygen Delivery Method Room Air Nasal Cannula Room Air Oxygen Flow Rate 2 Height Weight Telemetry Type Telemetry Monitoring Telemetry Heart Rate EKG MA Interval EKG QRS Interval Telemetry Strip Reading 11/08/24 05:55 11/08/24 07:00 11/08/24 07:00 Temperature Temperature Source Pulse Rate Respiratory Rate Blood Pressure Blood Pressure Mean Blood Pressure Left Arm Blood Pressure Location Blood Pressure Position O2 Sat by Pulse Oximetry Oxygen Delivery Method Room Air Nasal Cannula Oxygen Flow Rate Height Weight Telemetry Type Remote Telemetry Telemetry Monitoring Continues Telemetry Heart Rate 68 EKG MA Interval 0.15 EKG QRS Interval 0.12 H Telemetry Strip Reading sr w/ bbb 11/08/24 08:00 11/08/24 08:00 11/08/24 08:31 Temperature Temperature Source Pulse Rate Respiratory Rate Blood Pressure Blood Pressure Mean Blood Pressure Left Arm Blood Pressure Location Blood Pressure Position O2 Sat by Pulse Oximetry Oxygen Delivery Method Nasal Cannula Nasal Cannula Nasal Cannula Oxygen Flow Rate 2 Height Weight Telemetry Type Telemetry Monitoring Telemetry Heart Rate EKG MA Interval EKG QRS Interval Telemetry Strip Reading 11/08/24 09:40 11/08/24 09:53 11/08/24 09:53 Temperature 98.1 F Temperature Source Temporal Artery Scan Pulse Rate 85 Respiratory Rate 16 Blood Pressure 134/78 Blood Pressure Mean 96 Blood Pressure Left Arm Blood Pressure Location Left Arm Blood Pressure Position Supine O2 Sat by Pulse Oximetry 95 95 Oxygen Delivery Method Nasal Cannula Nasal Cannula Nasal Cannula Oxygen Flow Rate 2 2 Height Weight Telemetry Type Telemetry Monitoring Telemetry Heart Rate EKG MA Interval EKG QRS Interval Telemetry Strip Reading 11/08/24 10:14 11/08/24 12:00 11/08/24 12:48 Temperature Temperature Source Pulse Rate Respiratory Rate Blood Pressure Blood Pressure Mean Blood Pressure Left Arm Blood Pressure Location Blood Pressure Position O2 Sat by Pulse Oximetry Oxygen Delivery Method Nasal Cannula Nasal Cannula Nasal Cannula Oxygen Flow Rate Height Weight Telemetry Type Telemetry Monitoring Telemetry Heart Rate EKG MA Interval EKG QRS Interval Telemetry Strip Reading Lab Results Lab Results: Lab Results: Last 24 Hours 11/08/24 11/07/24 11/07/24 05:34 13:06 12:50 WBC 5.11 3.84 L RBC 4.19 L 4.08 L Hgb 14.3 14.0 Hct 41.9 L 40.4 L MCV 100.0 H 99.0 H MCH 34.1 H 34.3 H MCHC 34.1 34.7 RDW Coeff of Emir 13.8 13.7 Plt Count 125 L 114 L Immature Gran % (Auto) 0.4 0.3 Neut % (Auto) 93.0 H 80.6 H Lymph % (Auto) 3.9 L 11.2 [place] % (Auto) 2.7 7.6 Eos % (Auto) 0.0 0.0 Baso % (Auto) 0.0 0.3 Neut # (Auto) 4.8 3.1 Lymph # (Auto) 0.2 L 0.4 L [place] # (Auto) 0.1 L 0.3 L Eos # (Auto) 0.0 0.0 Baso # (Auto) 0.0 0.0 Immature Gran # (Auto) 0.0 0.0 Sodium 135.2 134.0 L Potassium 4.34 3.12 L Chloride 95.6 L 95.9 L Carbon Dioxide 30.3 H 28.3 Anion Gap 13.64 12.92 BUN 14.4 16.6 Creatinine 0.85 0.82 Estimated GFR (MDRD) 89.00 93.00 BUN/Creatinine Ratio 16.94 20.24 Glucose 218.0 H D 167.3 H Lactic Acid 1.26 Calcium 8.76 8.50 Magnesium 2.09 Total Bilirubin 1.06 1.17 AST 40.3 39.9 ALT 22.9 20.0 Alkaline Phosphatase 83.3 85.0 Troponin I 0.015 NT-Pro-B Natriuret Pep 508 H Total Protein 7.99 7.26 Albumin 4.27 3.87 Globulin 3.72 3.39 Albumin/Globulin Ratio 1.14 1.14 Influ A Molecular Assay Positive by naat H Influ B Molecular Assay Negative by naat RSV Antigen Negative by naat SARS CoV-2 RNA Rapid BEA Negative Additional Comments Additional Comments: I have independently reviewed and interpreted the labs/EKGs/imaging ordered during this hospital stay. I have reviewed outside records that are available in our EMR that pertain to medical stay including imaging/notes/labs from previous visits. Active Medications Active Medications: Medications Generic Name Dose Route Start Last Admin Trade Name Freq PRN Reason Stop Dose Admin Acetaminophen 650 mg 11/07/24 14:59 Acetaminophen 325 Mg Tablet PO Q4H PRN Mild Pain Albuterol/Ipratropium 3 ml 11/07/24 18:00 11/08/24 09:41 Ipratropium/Albuterol Vial.Neb NEB 3 ml RTQ4H PROSPER Administration Amlodipine Besylate 5 mg 11/08/24 09:00 11/08/24 08:48 Amlodipine Besylate 5 Mg Tablet PO 5 mg DAILY PROSPER Administration Aspirin 81 mg 11/08/24 07:30 11/08/24 08:47 Aspirin 81 Mg Tablet. PO 81 mg DAILYWM2 PROSPER Administration Atorvastatin Calcium 20 mg 11/08/24 17:00 Atorvastatin Calcium 20 Mg Tablet PO DAILY@1700 PROSPER Azathioprine 200 mg 11/08/24 09:00 11/08/24 08:47 Azathioprine 50 Mg Tablet PO 200 mg DAILY PROSPER Administration Clopidogrel Bisulfate 75 mg 11/07/24 19:30 11/08/24 08:48 Clopidogrel Bisulfate 75 Mg Tablet PO 75 mg DAILY PROSPER Administration Fenofibrate 160 mg 11/08/24 09:00 11/08/24 08:48 Fenofibrate 160 Mg Tablet PO 160 mg DAILY PROSPER Administration Ferrous Sulfate 324 mg 11/08/24 09:00 11/08/24 08:49 Ferrous Sulfate 324 Mg Tablet. PO 324 mg 2XD PROSPER Administration Folic Acid 1 mg 11/08/24 09:00 11/08/24 08:48 Folic Acid 1 Mg Tablet PO 1 mg DAILY PROSPER Administration Furosemide 20 mg 11/08/24 09:00 11/08/24 08:49 Furosemide 20 Mg Tablet PO 20 mg QDAC2 PROSPER Administration CEFTRIAXONE/D5W 1 GM PREMIX 1 gm in 50 mls @ 100 mls/hr 11/07/24 15:30 11/08/24 08:47 Rocephin 1 Gm/50 Ml D5w IV 11/10/24 15:29 100 mls/hr DAILY PROSPER Administration Doxycycline Hyclate 100 mg/ 100 mls @ 50 mls/hr 11/07/24 21:00 11/08/24 09:11 Sodium Chloride IV 11/10/24 20:59 50 mls/hr Q12HR PROSPER Administration Insulin Human Regular 0 unit 11/07/24 19:15 11/08/24 06:19 Insulin Regular, Human 100 Unit/Ml (10ml) Vial SUBCUT 2 unit PRN PRN Administration Hyperglycemia Protocol Losartan Potassium 50 mg 11/08/24 09:00 11/08/24 08:48 Losartan Potassium 25 Mg Tablet PO 50 mg DAILY PROSPER Administration Methylprednisolone Sodium Succinate 40 mg 11/07/24 21:00 11/08/24 08:47 Methylprednisolone Sod Succ/Pf 40 Mg/Ml Vial IVP 40 mg Q12HR PROSPER Administration Metoprolol Succinate 50 mg 11/08/24 09:00 11/08/24 08:48 Metoprolol Succinate 50 Mg Tab.Er.24h PO 50 mg DAILY PROSPER Administration Omeprazole 20 mg 11/08/24 09:00 11/08/24 08:48 Omeprazole 20 Mg Capsule.Dr PO 20 mg QDAC2 PROSPER Administration Paroxetine HCl 30 mg 11/08/24 09:00 11/08/24 08:47 Paroxetine Hcl 20 Mg Tablet PO 30 mg DAILY PROSPER Administration Potassium Chloride 20 meq 11/08/24 08:00 11/08/24 08:48 Potassium Chloride 20 Meq Tab PO 20 meq DAILYWM2 PROSPER Administration Propylthiouracil 50 mg 11/08/24 09:00 11/08/24 08:47 Propylthiouracil 50 Mg Tablet PO 50 mg DAILY PROSPER Administration Sitagliptin Phosphate 50 mg 11/08/24 09:00 11/08/24 08:47 Sitagliptin Phosphate 50 Mg Tablet PO 50 mg DAILY PROSPER Administration Plan Plan: 1. Acute Hypoxic Respiratory Failure in the setting of COPD exacerbation and Influenza A - wean oxygen as tolerated, steroids, nebs 2. Influenza A - out of 48 hour window for tamiflu, conservative measures, isolation 3. COPD Exacerbation - rocephin, doxy, steroids, nebs 4. Hypokalemia - Resolved 5. HTN - chronic, continue home medications 6. DM2 - ADA diet, accuchecks qid with ssi, hold metformin DVT Prophylaxis: Plavix Review Statement Review Statement: I have personally discussed and reviewed the patient's visit/currently labs/imaging/decision making with Dr. Austin, my supervising attending. Greater that 50 minutes spent with patient, 50% of the time spent with this patient was devoted to counseling and coordination of care.
[2024-11-08] MEDS: LIPITOR PO SCH (17:43)
[2024-11-09 05:19] LABS: EOSINOPHILS % (AUTO) 0.2 % (0.0-7.0); HEMATOCRIT 38.1 % (42.0-52.0); HEMOGLOBIN 12.9 g/dl (14.0-18.0); IMMATURE GRANULOCYTE % (AUTO) 0.5 % (0.0-5.0); LYMPHOCYTES # (AUTO) 0.2 K/uL (0.60-3.4); MEAN CORPUSCULAR HEMOGLOBIN 33.8 pg (27.0-31.0); MEAN CORPUSCULAR HGB CONC 33.9 (31.8-35.4); MEAN CORPUSCULAR VOLUME 99.7 fl (80.0-94.0); MONOCYTES # (AUTO) 0.3 K/uL (0.4-2.0); MONOCYTES % (AUTO) 6.5 (0-10); NEUTROPHILS # (AUTO) 3.7 K/ul (2.0-6.9); NEUTROPHILS % (AUTO) 87.8 % (42.2-75.2); PLATELET COUNT 161 10^3/uL (140-440); RDW COEFFICIENT OF VARIATION 13.5 % (11.6-14.8); RED BLOOD COUNT 3.82 10^6/ul (4.70-6.10); WHITE BLOOD COUNT 4.18 K/ul (4.2-10.2)
[2024-11-09 05:34] LABS: ALANINE AMINOTRANSFERASE 18.9 U/L (0-50); ALBUMIN 3.65 g/dL (3.5-5.0); ALKALINE PHOSPHATASE 70.1 U/L (56-119); ASPARTATE AMINO TRANSFERASE 42.3 U/L (17-59); BILIRUBIN,TOTAL 0.8 mg/dL (0.2-1.3); BLOOD UREA NITROGEN 25.6 mg/dL (9-20); CALCIUM 8.83 mg/dL (8.4-10.2); CARBON DIOXIDE 28.9 mmol/L (22-30.0); CHLORIDE 99.8 mmol/L (98-107); CREATININE 0.75 mg/dL (0.60-1.10); GLUCOSE 226.1 mg/dL (74-106); POTASSIUM 4.17 mmol/L (3.5-5.1); SODIUM 134.7 mmol/L (134.5-145); TOTAL PROTEIN 6.99 g/dL (6.3-8.2)
--- NOTE | 2024-11-09 13:31 | PCM.PROG ---
Date/Time Seen Date Seen by Provider: 11/09/24 Time Seen by Provider: 09:00 Provider Provider[facility] Chief Complaint Chief Complaint: ACUTE HYPOXIC RESPITORY FAILURE Subjective Subjective: Patient lives at home alone. States his neighbor checks in on him. Still on 2L today, working on weaning. Feels better but not sure he's well enough to go home yet. Objective Appearance: Positive No Apparent Distress and Alert and Oriented x3 Chest/Lungs: Positive Symmetrical With Equal Breath Sounds and Clear to Auscultation Bilaterally (mod diminished) Heart: Positive RRR and Pulses Normal GI/: Positive Soft, Nontender, Bowel Sounds Normal and No Distention Musculoskeletal: Positive Not Examined Neurological: Positive Motor intact, Alert, Oriented and Muscle Strength 5/5 in Upper and Lower Extremities Bilaterally Vital Signs Vital Signs: Vital Signs: Last 24 Hours 11/08/24 13:38 11/08/24 13:45 11/08/24 14:00 Temperature 98.1 F Temperature Source Temporal Artery Scan Pulse Rate 82 Respiratory Rate 20 Blood Pressure 137/75 Blood Pressure Mean 95 Blood Pressure Location Left Arm Blood Pressure Position Supine O2 Sat by Pulse Oximetry 94 L 95 Oxygen Delivery Method Nasal Cannula Nasal Cannula Nasal Cannula Oxygen Flow Rate 2 2 Telemetry Type Telemetry Monitoring Telemetry Heart Rate EKG WV Interval EKG QRS Interval Telemetry Strip Reading 11/08/24 15:00 11/08/24 15:24 11/08/24 17:00 Temperature Temperature Source Pulse Rate Respiratory Rate Blood Pressure Blood Pressure Mean Blood Pressure Location Blood Pressure Position O2 Sat by Pulse Oximetry Oxygen Delivery Method Nasal Cannula Nasal Cannula Nasal Cannula Oxygen Flow Rate Telemetry Type Telemetry Monitoring Telemetry Heart Rate EKG W[place] Interval EKG QRS Interval Telemetry Strip Reading 11/08/24 17:36 11/08/24 17:54 11/08/24 19:00 Temperature 97.2 F L Temperature Source Pulse Rate 69 Respiratory Rate 20 Blood Pressure 133/72 Blood Pressure Mean 92 Blood Pressure Location Left Arm Blood Pressure Position Supine O2 Sat by Pulse Oximetry 95 Oxygen Delivery Method Nasal Cannula Nasal Cannula Oxygen Flow Rate 2 Telemetry Type Remote Telemetry Telemetry Monitoring Continues Telemetry Heart Rate 72 EKG WV Interval 0.19 EKG QRS Interval 0.13 H Telemetry Strip Reading SINUS RHYTHM WITH BBB 11/08/24 19:00 11/08/24 19:52 11/08/24 19:59 Temperature Temperature Source Pulse Rate Respiratory Rate Blood Pressure Blood Pressure Mean Blood Pressure Location Blood Pressure Position O2 Sat by Pulse Oximetry 93 L Oxygen Delivery Method Nasal Cannula Nasal Cannula Nasal Cannula Oxygen Flow Rate 2 Telemetry Type Telemetry Monitoring Telemetry Heart Rate EKG WV Interval EKG QRS Interval Telemetry Strip Reading 11/08/24 20:00 11/08/24 21:00 11/08/24 21:00 Temperature 97.6 F Temperature Source Temporal Artery Scan Pulse Rate 65 Respiratory Rate 18 17 Blood Pressure 111/64 Blood Pressure Mean 79 Blood Pressure Location Left Arm Blood Pressure Position Supine O2 Sat by Pulse Oximetry 94 L Oxygen Delivery Method Nasal Cannula Nasal Cannula Nasal Cannula Oxygen Flow Rate 2 2 Telemetry Type Telemetry Monitoring Telemetry Heart Rate EKG WV Interval EKG QRS Interval Telemetry Strip Reading 11/08/24 21:57 11/08/24 23:00 11/09/24 00:00 Temperature Temperature Source Pulse Rate Respiratory Rate Blood Pressure Blood Pressure Mean Blood Pressure Location Blood Pressure Position O2 Sat by Pulse Oximetry Oxygen Delivery Method Nasal Cannula Nasal Cannula Nasal Cannula Oxygen Flow Rate Telemetry Type Telemetry Monitoring Telemetry Heart Rate EKG WV Interval EKG QRS Interval Telemetry Strip Reading 11/09/24 01:00 11/09/24 01:00 11/09/24 02:00 Temperature Temperature Source Pulse Rate Respiratory Rate Blood Pressure Blood Pressure Mean Blood Pressure Location Blood Pressure Position O2 Sat by Pulse Oximetry Oxygen Delivery Method Nasal Cannula Nasal Cannula Oxygen Flow Rate Telemetry Type Remote Telemetry Telemetry Monitoring Continues Telemetry Heart Rate 53 L EKG WV Interval 0.26 H EKG QRS Interval 0.13 H Telemetry Strip Reading SINUS RYHTYM WITH 1ST AVB AND BBB 11/09/24 02:30 11/09/24 03:00 11/09/24 04:00 Temperature 98.3 F Temperature Source Temporal Artery Scan Pulse Rate 78 Respiratory Rate 19 Blood Pressure Blood Pressure Mean Blood Pressure Location Blood Pressure Position O2 Sat by Pulse Oximetry 94 L Oxygen Delivery Method Nasal Cannula Nasal Cannula Nasal Cannula Oxygen Flow Rate 2 Telemetry Type Telemetry Monitoring Telemetry Heart Rate EKG WV Interval EKG QRS Interval Telemetry Strip Reading 11/09/24 05:00 11/09/24 05:13 11/09/24 05:28 Temperature 97.1 F L Temperature Source Temporal Artery Scan Pulse Rate 73 Respiratory Rate 19 Blood Pressure 139/91 H Blood Pressure Mean 107 Blood Pressure Location Left Arm Blood Pressure Position Supine O2 Sat by Pulse Oximetry 96 Oxygen Delivery Method Nasal Cannula Nasal Cannula Nasal Cannula Oxygen Flow Rate 2 2 Telemetry Type Telemetry Monitoring Telemetry Heart Rate EKG WV Interval EKG QRS Interval Telemetry Strip Reading 11/09/24 06:00 11/09/24 07:00 11/09/24 07:00 Temperature Temperature Source Pulse Rate Respiratory Rate Blood Pressure Blood Pressure Mean Blood Pressure Location Blood Pressure Position O2 Sat by Pulse Oximetry Oxygen Delivery Method Nasal Cannula Nasal Cannula Oxygen Flow Rate Telemetry Type Remote Telemetry Telemetry Monitoring Continues Telemetry Heart Rate 94 EKG WV Interval 0.14 EKG QRS Interval 0.13 H Telemetry Strip Reading SR w/ BBB 11/09/24 08:00 11/09/24 08:00 11/09/24 08:15 Temperature Temperature Source Pulse Rate Respiratory Rate Blood Pressure Blood Pressure Mean Blood Pressure Location Blood Pressure Position O2 Sat by Pulse Oximetry Oxygen Delivery Method Nasal Cannula Nasal Cannula Nasal Cannula Oxygen Flow Rate 2 Telemetry Type Telemetry Monitoring Telemetry Heart Rate EKG WV Interval EKG QRS Interval Telemetry Strip Reading 11/09/24 09:35 11/09/24 09:36 11/09/24 10:00 Temperature 97.5 F L Temperature Source Temporal Artery Scan Pulse Rate 79 Respiratory Rate 20 Blood Pressure 132/79 Blood Pressure Mean 96 Blood Pressure Location Right Arm Blood Pressure Position Supine O2 Sat by Pulse Oximetry 92 L 95 Oxygen Delivery Method Room Air Room Air Nasal Cannula Oxygen Flow Rate 2 Telemetry Type Telemetry Monitoring Telemetry Heart Rate EKG WV Interval EKG QRS Interval Telemetry Strip Reading 11/09/24 11:00 11/09/24 11:59 11/09/24 13:00 Temperature Temperature Source Pulse Rate Respiratory Rate Blood Pressure Blood Pressure Mean Blood Pressure Location Blood Pressure Position O2 Sat by Pulse Oximetry Oxygen Delivery Method Nasal Cannula Nasal Cannula Nasal Cannula Oxygen Flow Rate Telemetry Type Telemetry Monitoring Telemetry Heart Rate EKG WV Interval EKG QRS Interval Telemetry Strip Reading Lab Results Lab Results: Lab Results: Last 24 Hours 11/09/24 05:08 WBC 4.18 L RBC 3.82 L Hgb 12.9 L Hct 38.1 L MCV 99.7 H MCH 33.8 H MCHC 33.9 RDW Coeff of Emir 13.5 Plt Count 161 Immature Gran % (Auto) 0.5 Neut % (Auto) 87.8 H Lymph % (Auto) 5.0 L [place] % (Auto) 6.5 Eos % (Auto) 0.2 Baso % (Auto) 0.0 Neut # (Auto) 3.7 Lymph # (Auto) 0.2 L [place] # (Auto) 0.3 L Eos # (Auto) 0.0 Baso # (Auto) 0.0 Immature Gran # (Auto) 0.0 Sodium 134.7 Potassium 4.17 Chloride 99.8 Carbon Dioxide 28.9 Anion Gap 10.17 BUN 25.6 H Creatinine 0.75 Estimated GFR (MDRD) 103.00 BUN/Creatinine Ratio 34.13 Glucose 226.1 H Calcium 8.83 Total Bilirubin 0.80 AST 42.3 ALT 18.9 Alkaline Phosphatase 70.1 Total Protein 6.99 Albumin 3.65 Globulin 3.34 Albumin/Globulin Ratio 1.09 Additional Comments Additional Comments: I have independently reviewed and interpreted the labs/EKGs/imaging ordered during this hospital stay. I have reviewed outside records that are available in our EMR that pertain to medical stay including imaging/notes/labs from previous visits. Active Medications Active Medications: Medications Generic Name Dose Route Start Last Admin Trade Name Freq PRN Reason Stop Dose Admin Acetaminophen 650 mg 11/07/24 14:59 Acetaminophen 325 Mg Tablet PO Q4H PRN Mild Pain Albuterol/Ipratropium 3 ml 11/07/24 18:00 11/09/24 09:39 Ipratropium/Albuterol Vial.Neb NEB 3 ml RTQ4H PROSPER Administration Amlodipine Besylate 5 mg 11/08/24 09:00 11/09/24 09:04 Amlodipine Besylate 5 Mg Tablet PO 5 mg DAILY PROSPER Administration Aspirin 81 mg 11/08/24 07:30 11/09/24 09:03 Aspirin 81 Mg Tablet. PO 81 mg DAILYWM2 PROSPER Administration Atorvastatin Calcium 20 mg 11/08/24 17:00 11/08/24 17:43 Atorvastatin Calcium 20 Mg Tablet PO 20 mg DAILY@1700 PROSPER Administration Azathioprine 200 mg 11/08/24 09:00 11/09/24 09:02 Azathioprine 50 Mg Tablet PO 200 mg DAILY PROSPER Administration Cefuroxime Axetil 200 mg 11/10/24 07:30 Cefpodoxime Proxetil 200 Mg Tablet PO 11/13/24 07:29 BIDWM2 PROSPER Clopidogrel Bisulfate 75 mg 11/07/24 19:30 11/09/24 09:04 Clopidogrel Bisulfate 75 Mg Tablet PO 75 mg DAILY PROSPER Administration Doxycycline Hyclate 100 mg 11/09/24 21:00 Doxycycline Hyclate 100 Mg Capsule PO 11/12/24 20:59 Q12HR PROSPER Fenofibrate 160 mg 11/08/24 09:00 11/09/24 09:03 Fenofibrate 160 Mg Tablet PO 160 mg DAILY PROSPER Administration Ferrous Sulfate 324 mg 11/08/24 09:00 11/09/24 09:02 Ferrous Sulfate 324 Mg Tablet.Dr PO 324 mg 2XD PROSPER Administration Folic Acid 1 mg 11/08/24 09:00 11/09/24 09:03 Folic Acid 1 Mg Tablet PO 1 mg DAILY PROSPER Administration Furosemide 20 mg 11/08/24 09:00 11/09/24 05:11 Furosemide 20 Mg Tablet PO 20 mg QDAC2 PROSPER Administration Insulin Human Regular 0 unit 11/07/24 19:15 11/08/24 20:57 Insulin Regular, Human 100 Unit/Ml (10ml) Vial SUBCUT 2 unit PRN PRN Administration Hyperglycemia Protocol Losartan Potassium 50 mg 11/08/24 09:00 11/09/24 09:03 Losartan Potassium 25 Mg Tablet PO 50 mg DAILY PROSPER Administration Methylprednisolone Sodium Succinate 40 mg 11/07/24 21:00 11/09/24 09:04 Methylprednisolone Sod Succ/Pf 40 Mg/Ml Vial IVP 40 mg Q12HR PROSPER Administration Metoprolol Succinate 50 mg 11/08/24 09:00 11/09/24 09:03 Metoprolol Succinate 50 Mg Tab.Er.24h PO 50 mg DAILY PROSPER Administration Omeprazole 20 mg 11/08/24 09:00 11/09/24 05:11 Omeprazole 20 Mg Capsule.Dr PO 20 mg QDAC2 PROSPER Administration Paroxetine HCl 30 mg 11/08/24 09:00 11/09/24 09:03 Paroxetine Hcl 20 Mg Tablet PO 30 mg DAILY PROSPER Administration Potassium Chloride 20 meq 11/08/24 08:00 11/09/24 09:03 Potassium Chloride 20 Meq Tab PO 20 meq DAILYWM2 PROSPER Administration Propylthiouracil 50 mg 11/08/24 09:00 11/09/24 09:03 Propylthiouracil 50 Mg Tablet PO 50 mg DAILY PROSPER Administration Sitagliptin Phosphate 50 mg 11/08/24 09:00 11/09/24 09:03 Sitagliptin Phosphate 50 Mg Tablet PO 50 mg DAILY PROSPER Administration Plan Plan: 1. Acute Hypoxic Respiratory Failure in the setting of COPD exacerbation and Influenza A - wean oxygen as tolerated, steroids, nebs 2. Influenza A - out of 48 hour window for tamiflu, conservative measures, isolation 3. COPD Exacerbation - rocephin, doxy, steroids, nebs 4. Hypokalemia - Resolved 5. HTN - chronic, continue home medications 6. DM2 - ADA diet, accuchecks qid with ssi, hold metformin DVT Prophylaxis: Lovenox Review Statement Review Statement: I have personally discussed and reviewed the patient's visit/currently labs/imaging/decision making with Dr. Austin, my supervising attending. Greater that 50 minutes spent with patient, 50% of the time spent with this patient was devoted to counseling and coordination of care.
[2024-11-09] MEDS: XANAX PO ONE (15:42)
[2024-11-09] MEDS: DOXYCYCLINE HYCLATE PO SCH (20:33)
[2024-11-10 05:36] LABS: HEMATOCRIT 39.3 % (42.0-52.0); IMMATURE GRANULOCYTE % (AUTO) 0.6 % (0.0-5.0); LYMPHOCYTES # (AUTO) 0.2 K/uL (0.60-3.4); LYMPHOCYTES % (AUTO) 3.7 (10.0-50.0); MEAN CORPUSCULAR HEMOGLOBIN 33.9 pg (27.0-31.0); MEAN CORPUSCULAR HGB CONC 33.1 (31.8-35.4); MEAN CORPUSCULAR VOLUME 102.6 fl (80.0-94.0); MONOCYTES # (AUTO) 0.3 K/uL (0.4-2.0); MONOCYTES % (AUTO) 5.9 (0-10); NEUTROPHILS # (AUTO) 4.4 K/ul (2.0-6.9); NEUTROPHILS % (AUTO) 89.8 % (42.2-75.2); PLATELET COUNT 190 10^3/uL (140-440); RDW COEFFICIENT OF VARIATION 13.2 % (11.6-14.8); RED BLOOD COUNT 3.83 10^6/ul (4.70-6.10); WHITE BLOOD COUNT 4.89 K/ul (4.2-10.2)
[2024-11-10 05:47] LABS: ALANINE AMINOTRANSFERASE 17.7 U/L (0-50); ALBUMIN 3.53 g/dL (3.5-5.0); ALKALINE PHOSPHATASE 70.9 U/L (56-119); ASPARTATE AMINO TRANSFERASE 26.9 U/L (17-59); BILIRUBIN,TOTAL 0.83 mg/dL (0.2-1.3); BLOOD UREA NITROGEN 31.7 mg/dL (9-20); CALCIUM 8.88 mg/dL (8.4-10.2); CARBON DIOXIDE 32.8 mmol/L (22-30.0); CHLORIDE 97.7 mmol/L (98-107); CREATININE 0.89 mg/dL (0.60-1.10); GLUCOSE 238.9 mg/dL (74-106); SODIUM 133.7 mmol/L (134.5-145); TOTAL PROTEIN 6.7 g/dL (6.3-8.2)
[2024-11-10] MEDS: CEFPODOXIME PROXETIL PO SCH (07:31)
--- NOTE | 2024-11-10 11:26 | DCSUM ---
Admission Date Admission Date: 11/07/24 Discharge Date Discharge Date: 11/10/24 Admission Diagnosis Admission Diagnosis: 1. Acute Hypoxic Respiratory Failure in the setting of COPD exacerbation and Influenza A 2. Influenza A 3. Acute COPD Exacerbation Discharge Diagnosis Discharge Diagnosis: 1. Acute Hypoxic Respiratory Failure in the setting of COPD exacerbation and Influenza A 2. Influenza A 3. Acute COPD Exacerbation 4. Hypokalemia - Resolved 5. HTN Hospital Provider Hospital Provider: JULIO ESPARZA PA-C, [facility] [place] Primary Care Physician Primary Care Physician: BILLY CERON MD Summary of History and Physical Summary of History and Physical: 69 yo male with pmh of COPD, DM2, Crohn's disease, CVA, and HTN presented to the ER with shortness of breath. Patient states he started not feeling well on Saturday with fever and cough. Progressively worsening to shortness of breath. He was treated for URI in September with keflex and steroids. Today found to have flu A. Chest x-ray clear. Mild leukopenia and hypokalemia. O2 sat dropped down to 87% on RA. He was placed on 2L. Does not wear home oxygen and is still an active smoker. Admitted to Med/surg Observation Hospital Course Subjective: Patient out of window for tamiflu. Treated with antibiotics and steroids for COPD exacerbation. Continued to require 2L. Unable to wean to RA, patient would drop to 88-89%. Patient has been ambulatory. He is feeling better. Wheezing improved. He feels comfortable with discharge to home. Remaining abx and steroids prescribed. Home O2 ordered. F/u with pcp to wean. Patient agrees to plan of care. Appearance: Pleasant, No Apparent Distress and Alert HEENT: MMM and Supple CVS: Other (RRR) Abdomen: Soft, Non-Tender and No Distention Respiratory: Other (+mild wheezing mark, much improved ) Extremities: No Edema Vital Signs: Most Recent Vital Signs Temperature 97.4 F L 11/10/24 10:00 Temperature Source Temporal Artery Scan 11/10/24 10:00 Temperature Source Infrared 11/07/24 12:26 Pulse Rate 74 11/10/24 10:00 Respiratory Rate 20 11/10/24 10:00 Blood Pressure 143/80 H 11/10/24 10:00 Blood Pressure Mean 101 11/10/24 10:00 Blood Pressure Left Arm 117/72 11/07/24 15:53 Blood Pressure Location Right Arm 11/10/24 10:00 Blood Pressure Position Sitting 11/10/24 10:00 O2 Sat by Pulse Oximetry 88 L 11/10/24 10:00 Oxygen Delivery Method Room Air 11/10/24 10:00 Oxygen Flow Rate 2 11/10/24 10:00 Height 6 ft 5 in 11/07/24 15:53 Weight 73.3 kg 11/07/24 15:53 Telemetry Type Remote Telemetry 11/10/24 07:00 Telemetry Monitoring Continues 11/10/24 07:00 Telemetry Heart Rate 68 11/10/24 07:00 EKG OR Interval 0.16 11/10/24 07:00 EKG QRS Interval 0.12 H 11/10/24 07:00 Telemetry Strip Reading SR with BBB 11/10/24 07:00 Imaging: EXAM: CHEST RADIOGRAPH (1 VIEW) TECHNIQUE: Frontal Chest Radiograph. HISTORY: Shortness of breath COMPARISON: None. FINDINGS: Lines, Tubes, Devices: None Lungs and Pleura: No focal consolidation. No pleural effusion. No pneumothorax. Findings suggesting chronic obstructive pulmonary disease. Cardiac silhouette: Normal. Bones: Old left rib fracture. IMPRESSION: No acute radiographic abnormality. See above description. Lab Results Last 24 Hours: 11/10/24 05:20 WBC 4.89 RBC 3.83 L Hgb 13.0 L Hct 39.3 L MCV 102.6 H MCH 33.9 H MCHC 33.1 RDW Coeff of Emir 13.2 Plt Count 190 Immature Gran % (Auto) 0.6 Neut % (Auto) 89.8 H Lymph % (Auto) 3.7 L Campbell % (Auto) 5.9 Eos % (Auto) 0.0 Baso % (Auto) 0.0 Neut # (Auto) 4.4 Lymph # (Auto) 0.2 L Campbell # (Auto) 0.3 L Eos # (Auto) 0.0 Baso # (Auto) 0.0 Immature Gran # (Auto) 0.0 Sodium 133.7 L Potassium 5.00 Chloride 97.7 L Carbon Dioxide 32.8 H Anion Gap 8.20 BUN 31.7 H Creatinine 0.89 Estimated GFR (MDRD) 84.00 BUN/Creatinine Ratio 35.61 Glucose 238.9 H Calcium 8.88 Total Bilirubin 0.83 AST 26.9 ALT 17.7 Alkaline Phosphatase 70.9 Total Protein 6.70 Albumin 3.53 Globulin 3.17 Albumin/Globulin Ratio 1.11 Discharge Instructions Discharge Planning: Discharge Planning > [address] Iain Ceron. Discharge Medications: Medications at Discharge (Home Meds & RX) azathioprine 50 mg tablet (Imuran) 200 mg PO DAILY CROHN'S DISEASE 07/26/15 folic acid 1 mg tablet 1 mg PO DAILY 07/26/15 C.COMMODE #1 ea 06/17/23 aspirin 81 mg tablet,delayed release (Adult Low Dose Aspirin) 81 mg PO QDAY 06/25/23 clopidogrel 75 mg tablet See Rx Instructions .Route .COMPLEX #30 tabs 08/08/23 losartan 50 mg tablet 50 mg PO DAILY #90 tabs 07/22/24 furosemide 20 mg tablet 20 mg PO QAM #30 tabs 07/30/24 albuterol sulfate 90 mcg/actuation aerosol inhaler 2 puff inhalation Q4-6H PRN for wheezing #6.7 grams 09/02/24 metformin 1,000 mg tablet 1,000 mg PO DAILY #30 tabs 09/02/24 atorvastatin 20 mg tablet 20 mg PO DAILY #30 tabs 10/01/24 ferrous sulfate 325 mg (65 mg iron) tablet (FeroSul) 325 mg PO 2XD #60 tabs 10/01/24 omeprazole 20 mg capsule,delayed release 20 mg PO DAILY #30 caps 10/01/24 amlodipine 5 mg tablet 5 mg PO DAILY #30 tabs 10/05/24 fenofibrate micronized 200 mg capsule 200 mg PO DAILY #30 caps 10/05/24 metoprolol succinate 100 mg tablet,extended release 24 hr 50 mg (1/2 x 100 mg) PO DAILY #15 tabs 10/05/24 potassium chloride 20 mEq tablet,extended release(part/cryst) 20 meq PO DAILY #30 tabs 10/05/24 propylthiouracil 50 mg tablet 50 mg PO DAILY #30 tabs 10/05/24 sitagliptin phosphate 50 mg tablet (Januvia) 50 mg PO DAILY #30 tabs 10/05/24 paroxetine HCl 30 mg tablet 30 mg PO DAILY #30 tabs 10/27/24 cefpodoxime 200 mg tablet 200 mg PO BIDWM2 3 days #6 tabs 11/10/24 doxycycline hyclate 100 mg capsule 100 mg PO Q12HR 3 days #6 caps 11/10/24 prednisone 20 mg tablet 20 mg PO BID 3 days #6 tabs 11/10/24 Discharge Plan Discharge Discharge Orders: Discharge Patient (ONCE); Ordered 11/10/24 Ordered By: JULIO ESPARZA Activity Restrictions/Additional Instructions: DISCHARGE TO HOME DX: INFLUENZA, COPD EXACERBATION HOME O2 ORDERED FOLLOW UP WITH PCP PHARMACY: [facility] ANTIBIOTICS AND STEROIDS RETURN WITH WORSENING SYMPTOMS Instructions: Influenza (DC), Using Oxygen at Home (DC), COPD (Chronic Obstructive Pulmonary Disease) (DC) Care Plan Goals: Problem: Impaired Respiratory Status Goal: Exhibit optimal respiratory function Instructions: Activities as tolerated Apply oxygen as ordered Elevate head of bed Notify MD of increased congestion Patient Disposition: HOME SELF-CARE Prescriptions: New doxycycline hyclate 100 mg Capsule 100 mg PO Q12HR 3 Days Qty: 6 0RF cefpodoxime 200 mg Tablet 200 mg PO BIDWM2 3 Days Qty: 6 0RF prednisone 20 mg tablet 20 mg PO BID 3 Days Qty: 6 0RF Continued clopidogrel 75 mg tablet See Rx Instructions .ROUTE .COMPLEX Qty: 30 2RF Dose Instruction: TAKE ONE TABLET DAILY Rx Instructions: TAKE ONE TABLET DAILY losartan 50 mg tablet 50 mg PO DAILY Qty: 90 2RF furosemide 20 mg tablet 20 mg PO QAM Qty: 30 3RF metformin 1,000 mg tablet 1,000 mg PO DAILY Qty: 30 3RF albuterol sulfate 90 mcg/actuation HFA aerosol inhaler 2 puff inhalation Q4-6H PRN (Reason: for wheezing) Qty: 6.7 3RF ferrous sulfate [FeroSul] 325 mg (65 mg iron) tablet 325 mg PO 2XD Qty: 60 3RF omeprazole 20 mg capsule,delayed release(DR/EC) 20 mg PO DAILY Qty: 30 3RF atorvastatin 20 mg tablet 20 mg PO DAILY Qty: 30 3RF fenofibrate micronized 200 mg capsule 200 mg PO DAILY Qty: 30 3RF Januvia 50 mg tablet 50 mg PO DAILY Qty: 30 3RF potassium chloride 20 mEq tablet,ER particles/crystals 20 meq PO DAILY Qty: 30 3RF propylthiouracil 50 mg tablet 50 mg PO DAILY Qty: 30 3RF amlodipine 5 mg tablet 5 mg PO DAILY Qty: 30 3RF metoprolol succinate 100 mg tablet extended release 24 hr 50 mg PO DAILY Qty: 15 3RF paroxetine HCl 30 mg tablet 30 mg PO DAILY Qty: 30 3RF azathioprine [Imuran] 50 MG tablet 200 mg PO DAILY Rx Instructions: TAKES FOR CROHN'S DISEASE. folic acid 1 MG tablet 1 mg PO DAILY aspirin [Adult Low Dose Aspirin] 81 mg tablet,delayed release (DR/EC) 81 mg PO QDAY No Action (DME) C.COMMODE Misc See Rx Instructions .ROUTE Qty: 1 0RF Rx Instructions: As directed bedside commode fracture hip Did you review [place] [employer] for [place] controlled substances?: Not Applicable Discussed opioids are addictive and Narcan is available by prescription or from pharmacy.: No Condition: Stable Referrals: IBLLY CERON MD [Primary Care Provider] - 11/17/24 2:40 pm
[2024-11-10 14:59] VITALS: BP 140/102; PULSE 67; RESP 18; TEMP 97.3
== END 2024-11-10 15:55 | disposition home or self-care (01) | DRG 193 ==
LOC: MEDSURG B 12:14 → ED 12:14 → MEDSURG B 15:48
PROVIDERS: ADMIT Hospitalist; ATTEND Physician Assistant